=== PATIENT | male | born 1960 | race Caucasian/White ===

== ENCOUNTER → 2016-09-19 | Outpatient (REF) | payer OTHER ==
[2016-09-19 13:57] LABS: RETIC HEMOGLOBIN CONTENT CHr 34.7 PG (24-36); RETICULOCYTE ABSOLUTE ADVIA212 90 x10(9)/L (17-77)
[2016-09-19 14:24] LABS: REASON FOR REVIEW COMPREHENSIVE REVIEW
[2016-09-20 14:14] LABS: ERYTHROPOIETIN 8.6 mIU/mL (2.6-18.5); H PYLORI SERUM QUANT IgG ABY <0.9 U/mL (0.0-0.8)
== END ==
LOC: M LAB REF 10:54
PROVIDERS: ATTEND Internal Medicine Medical Oncology
DX: D75.1 Secondary polycythemia (principal)

== ENCOUNTER → 2016-10-19 | Outpatient (REF) | payer OTHER | LOC: M LAB REF 13:31 | PROVIDERS: ATTEND Internal Medicine Medical Oncology | DX: D75.1 Secondary polycythemia (principal) ==

== ENCOUNTER → 2016-12-07 | Outpatient (REF) | payer OTHER | LOC: M LAB REF 16:46 | PROVIDERS: ATTEND Internal Medicine Medical Oncology | DX: D69.6 Thrombocytopenia, unspecified (principal) ==

== ENCOUNTER → 2018-05-22 | Outpatient (REF) | payer OTHER ==
[2018-05-22 13:37] LABS: BASO # 0.1 10^3/uL (0.0-0.2); BASO % 0.9 % (0.0-1.0); EOS # 0.3 10^3/uL (0.0-0.50); EOS % 4.5 % (0.0-3.0); HEMATOCRIT 50.8 % (42.0-52.0); HEMOGLOBIN 17.4 g/dl (13.5-17.5); LYMPH # 1.6 10^3/uL (1.5-4.5); LYMPH % 23.8 % (24.0-44.0); MEAN CORPUSCULAR HEMOGLOBIN 33.1 pg (27.0-33.0); MEAN CORPUSCULAR HGB CONC 34.3 g/dl (32.0-36.5); MEAN CORPUSCULAR VOLUME 96.6 fl (80.0-96.0); MONO % 14.7 % (0.0-5.0); NEUTROPHILS # 3.8 10^3/uL (1.8-7.7); NEUTROPHILS % 55.8 % (36.0-66.0); RED BLOOD COUNT 5.26 10^6/uL (4.30-6.10); WHITE BLOOD COUNT 6.9 10^3/uL (4.0-10.0)
[2018-05-22 13:41] LABS: PLATELET COUNT, AUTOMATED 76 10^3/uL (150-450)
[2018-05-22 14:05] LABS: HEMOGLOBIN A1c 6.3 %
[2018-05-22 14:14] LABS: ERYTHROCYTE SEDIMENTATION RATE 5 mm/hr (0-20)
[2018-05-22 14:56] LABS: ALBUMIN 3.6 GM/DL (3.2-5.2); ALT/SGPT 95 U/L (12-78); BILIRUBIN,TOTAL 0.6 MG/DL (0.2-1.0); BLOOD UREA NITROGEN 11 MG/DL (7-18); CALCIUM LEVEL 8.8 MG/DL (8.5-10.1); CARBON DIOXIDE LEVEL 24 MEQ/L (21-32); CHLORIDE LEVEL 104 MEQ/L (98-107); CREATININE FOR GFR 0.75 MG/DL (0.70-1.30); FERRITIN 406 NG/ML (26-388); FOLATE 5.9 NG/ML (>5.4); GLOMERULAR FILTRATION RATE > 60.0 (>56); GLUCOSE, FASTING 103 MG/DL (70-100); IRON (FE) 161 UG/DL (65-175); PERCENT SATURATION 41.9 % (19.7-50.0); POTASSIUM SERUM 4.1 MEQ/L (3.5-5.1); RHEUMATOID FACTOR QUANT < 10.0 IU/ML (<15.0); SODIUM LEVEL 138 MEQ/L (136-145); TOTAL IRON BINDING CAPACITY 384 UG/DL (250-450); TOTAL PROTEIN 7.3 GM/DL (6.4-8.2); VITAMIN B12 LEVEL 501 PG/ML (247-911)
[2018-05-24 14:37] LABS: ALBUMIN % 54.1 % (55.8-66.1)
[2018-05-24 14:38] LABS: ALBUMIN 3.95 GM/DL (3.29-5.55); ALPHA-1-GLOBULIN % 4.8 % (2.9-4.9); ALPHA-1-GLOBULINS 0.35 GM/DL (0.17-0.41); ALPHA-2-GLOBULINS 0.85 GM/DL (0.42-0.99); ALPHA-2-GLOBULINS % 11.7 % (7.1-11.8); BETA-1-GLOBULINS 0.51 GM/DL (0.28-0.60); BETA-2-GLOBULINS 0.46 GM/DL (0.19-0.55); BETA-2-GLOBULINS % 6.3 % (3.2-6.5); GAMMA GLOBULIN % 16.1 % (11.1-18.8); GAMMA GLOBULINS 1.18 GM/DL (0.65-1.58)
== END ==
LOC: M LABDRAW1 12:12
PROVIDERS: ATTEND Psychiatry & Neurology Neurology
DX: G25.81 Restless legs syndrome (principal); E11.9 Type 2 diabetes mellitus without complications; E07.9 Disorder of thyroid, unspecified; E61.1 Iron deficiency

== ENCOUNTER 2019-11-03 14:02 | Emergency (ER) | payer OTHER ==
[2019-11-03] MEDS ORDERED: BOOSTRIX/ADACEL VACCINE (DIPHTH/PERTUSS/ACELL/TETANUS) 0.5ML SYR As Ordered ONE (14:51)
[2019-11-03] MEDS ORDERED: BOOSTRIX/ADACEL VACCINE (DIPHTH/PERTUSS/ACELL/TETANUS) 0.5ML SYR ONE (14:51)
[2019-11-03] MEDS ORDERED: LIDOCAINE 2% MDV 20ML VIAL ONE (15:10)
[2019-11-03] MEDS ORDERED: LIDOCAINE 2% MDV 20ML VIAL As Ordered ONE (15:10)
== END 2019-11-03 16:00 | disposition home or self-care (01) ==
LOC: M ED 14:02
DX: S61.012A Laceration without foreign body of left thumb without damage to nail, initial encounter (principal); S63.125A Dislocation of interphalangeal joint of left thumb, initial encounter; W10.8XXA Fall (on) (from) other stairs and steps, initial encounter; Y92.019 Unspecified place in single-family (private) house as the place of occurrence of the external cause; K21.9 Gastro-esophageal reflux disease without esophagitis; I10 Essential (primary) hypertension; F41.9 Anxiety disorder, unspecified; Z79.82 Long term (current) use of aspirin; Z79.899 Other long term (current) drug therapy

== ENCOUNTER → 2020-09-02 | Outpatient (CLI) | payer OTHER | LOC: M OUTALCOH 07:28 | PROVIDERS: ATTEND Psychiatry & Neurology Psychiatry | DX: Z13.39 Encounter for screening examination for other mental health and behavioral disorders (principal); F10.20 Alcohol dependence, uncomplicated ==

== ENCOUNTER 2020-09-17 16:00 | Outpatient (RCR) | payer OTHER | END 2020-09-23 | LOC: M OUTALCOH 16:00 | PROVIDERS: ATTEND Psychiatry & Neurology Psychiatry | DX: F10.20 Alcohol dependence, uncomplicated (principal); F17.200 Nicotine dependence, unspecified, uncomplicated ==

== ENCOUNTER 2020-10-22 10:00 | Outpatient (RCR) | payer OTHER | END 2020-10-24 | LOC: M OUTALCOH 10:00 | PROVIDERS: ATTEND Psychiatry & Neurology Psychiatry | DX: F10.20 Alcohol dependence, uncomplicated (principal); F17.200 Nicotine dependence, unspecified, uncomplicated ==

== ENCOUNTER → 2020-11-05 | Outpatient (CLI) | payer OTHER | LOC: M PLALAB 11:45 | PROVIDERS: ATTEND Psychiatry & Neurology Psychiatry | DX: F10.20 Alcohol dependence, uncomplicated (principal) ==

== ENCOUNTER 2020-11-20 16:00 | Outpatient (RCR) | payer OTHER | END 2020-11-24 | LOC: M OUTALCOH 16:00 | PROVIDERS: ATTEND Psychiatry & Neurology Psychiatry | DX: F10.20 Alcohol dependence, uncomplicated (principal); F17.200 Nicotine dependence, unspecified, uncomplicated ==

== ENCOUNTER 2020-12-23 13:59 | Outpatient (RCR) | payer OTHER | END 2020-12-24 | LOC: M OUTALCOH 13:59 | PROVIDERS: ATTEND Psychiatry & Neurology Psychiatry | DX: F10.20 Alcohol dependence, uncomplicated (principal); F17.200 Nicotine dependence, unspecified, uncomplicated ==

== ENCOUNTER → 2021-01-06 | Outpatient (CLI) | payer OTHER | LOC: M PLALAB 12:38 | PROVIDERS: ATTEND Psychiatry & Neurology Psychiatry | DX: F10.20 Alcohol dependence, uncomplicated (principal) ==

== ENCOUNTER 2021-01-20 12:00 | Outpatient (RCR) | payer OTHER | END 2021-01-24 | LOC: M OUTALCOH 12:00 | PROVIDERS: ATTEND Psychiatry & Neurology Psychiatry | DX: F10.20 Alcohol dependence, uncomplicated (principal); F17.200 Nicotine dependence, unspecified, uncomplicated ==

== ENCOUNTER → 2021-01-27 | Outpatient (CLI) | payer OTHER | LOC: M PLALAB 13:58 | PROVIDERS: ATTEND Psychiatry & Neurology Psychiatry | DX: F10.20 Alcohol dependence, uncomplicated (principal) ==

== ENCOUNTER 2021-02-22 16:00 | Outpatient (RCR) | payer OTHER | END 2021-02-23 | LOC: M OUTALCOH 16:00 | PROVIDERS: ATTEND Psychiatry & Neurology Psychiatry | DX: F10.20 Alcohol dependence, uncomplicated (principal); F17.200 Nicotine dependence, unspecified, uncomplicated ==

== ENCOUNTER 2021-03-24 16:00 | Outpatient (RCR) | payer OTHER | END 2021-03-26 | LOC: M OUTALCOH 16:00 | PROVIDERS: ATTEND Psychiatry & Neurology Psychiatry | DX: F10.20 Alcohol dependence, uncomplicated (principal); F17.200 Nicotine dependence, unspecified, uncomplicated ==

== ENCOUNTER 2021-04-21 14:57 | Outpatient (RCR) | payer OTHER | END 2021-04-26 | LOC: M OUTALCOH 14:57 | PROVIDERS: ATTEND Psychiatry & Neurology Psychiatry | DX: F10.20 Alcohol dependence, uncomplicated (principal); F17.200 Nicotine dependence, unspecified, uncomplicated ==

== ENCOUNTER 2021-04-29 13:05 | Inpatient (IN) | payer OTHER ==
[~2021-04-29] VITALS: Ht 190.5 cm; Wt 85.0 kg
[2021-04-29] MEDS: predniSONE 20 MG TAB PO SCH (09:00)
[2021-04-29] MEDS ORDERED: PRAV20TA2 PO (13:18)
[2021-04-29] MEDS ORDERED: ALPR0.5T3 PO (13:18)
[2021-04-29] MEDS ORDERED: PROP40TA62 PO (13:18)
[2021-04-29] MEDS ORDERED: MONT10TA97 PO (13:18)
[2021-04-29] MEDS ORDERED: LANS30CA93 PO (13:18)
[2021-04-29] MEDS ORDERED: NORT50CA PO (13:18)
[2021-04-29 14:03] LABS: HEMATOCRIT 37.4 % (42.0-52.0); HEMOGLOBIN 13.1 g/dl (13.5-17.5); MEAN CORPUSCULAR HEMOGLOBIN 34.2 pg (27.0-33.0); MEAN CORPUSCULAR VOLUME 97.7 fl (80.0-96.0); RED BLOOD COUNT 3.83 10^6/uL (4.30-6.10); WHITE BLOOD COUNT 11.8 10^3/uL (4.0-10.0)
[2021-04-29 14:11] LABS: INR 1.68; PROTHROMBIN TIME 20.2 SECONDS (12.7-14.5)
[2021-04-29 14:24] LABS: PLATELET COUNT, AUTOMATED 53 10^3/uL (150-450)
[2021-04-29 14:28] LABS: ATYPICAL LYMPH 3 % (0-5); LYMPHOCYTES 22 % (16-44); MONOCYTES 5 % (0-5); NEUTROPHILS 70 % (28-66)
[2021-04-29 14:29] LABS: OVALOCYTES 1+
[2021-04-29 14:30] LABS: PLATELET ESTIMATE DECREASED (NORMAL)
[2021-04-29 14:39] LABS: ALBUMIN 2.6 GM/DL (3.2-5.2); ALT/SGPT 41 U/L (12-78); BILIRUBIN,DIRECT 4.2 MG/DL (0.0-0.2); BILIRUBIN,TOTAL 8.5 MG/DL (0.2-1.0); BLOOD UREA NITROGEN 12 MG/DL (7-18); CALCIUM LEVEL 8.7 MG/DL (8.5-10.1); CARBON DIOXIDE LEVEL 26 MEQ/L (21-32); CHLORIDE LEVEL 103 MEQ/L (98-107); CREATININE FOR GFR 0.96 MG/DL (0.70-1.30); ETHYL ALCOHOL (ETHANOL) < 0.003 % (0.000-0.010); GLOMERULAR FILTRATION RATE > 60.0 (>56); GLUCOSE, FASTING 101 MG/DL (70-100); POTASSIUM SERUM 3.1 MEQ/L (3.5-5.1); SODIUM LEVEL 134 MEQ/L (136-145); TOTAL PROTEIN 7.2 GM/DL (6.4-8.2)
[2021-04-29 15:00] LABS: RSV AMPLIFICATION NEGATIVE (NEGATIVE)
[2021-04-29] MEDS ORDERED: ACETAMINOPHEN TAB 650MG DOSE (2X325MG) PO PRN (15:30)
[2021-04-29] MEDS: METOPROLOL 5 MG/5 ML VIAL IV SCH ×3 (15:55→16:30)
[2021-04-29] MEDS ORDERED: METOPROLOL TART 25 MG TABLET PO ONE ×2 (16:05→19:55)
[2021-04-29] MEDS ORDERED: ASPI81TA26 PO (17:37)
[2021-04-29] MEDS ORDERED: HOME MED LIST COMPLETE! XX SCH (17:40)
[2021-04-29 18:53] LABS: FERRITIN 836 NG/ML (26-388); IRON (FE) 159 UG/DL (65-175); PERCENT SATURATION 88.3 % (19.7-50.0); TOTAL IRON BINDING CAPACITY 180 UG/DL (250-450)
[2021-04-29] MEDS ORDERED: REMDESIVIR 200 MG in NS 250 ML IV ONE (20:00)
[2021-04-29] MEDS: ENOXAPARIN 100MG/1ML SYRINGE (J1650 PER 10MG) SC SCH (20:48)
[2021-04-29 21:20] VITALS: BP 108/71
[2021-04-29] MEDS ORDERED: SODIUM CHLORIDE 0.9% INJ 10 ML SYR IV ONE (22:00)
[2021-04-29 23:31] VITALS: BP 96/63
[2021-04-30] MEDS ORDERED: DIGOXIN INJ 0.5 MG/2 ML AMP (J1160) IV ONE (02:55)
[2021-04-30] MEDS ORDERED: METOPROLOL 5 MG/5 ML VIAL IV STA (03:55)
[2021-04-30 04:00] VITALS: BP 107/79
[2021-04-30 07:54] LABS: MEAN CORPUSCULAR HEMOGLOBIN 35.3 pg (27.0-33.0); MEAN CORPUSCULAR HGB CONC 36.3 g/dl (32.0-36.5); MEAN CORPUSCULAR VOLUME 97.3 fl (80.0-96.0); RED BLOOD COUNT 4.42 10^6/uL (4.30-6.10); WHITE BLOOD COUNT 9.4 10^3/uL (4.0-10.0)
[2021-04-30 07:56] LABS: PLATELET COUNT, AUTOMATED 61 10^3/uL (150-450)
[2021-04-30 07:57] LABS: HEMOGLOBIN 15.6 g/dl (13.5-17.5)
[2021-04-30 08:14] LABS: ALBUMIN 2.6 GM/DL (3.2-5.2); ALT/SGPT 40 U/L (12-78); BILIRUBIN,TOTAL 8.9 MG/DL (0.2-1.0); BLOOD UREA NITROGEN 9 MG/DL (7-18); CALCIUM LEVEL 8.6 MG/DL (8.5-10.1); CARBON DIOXIDE LEVEL 25 MEQ/L (21-32); CHLORIDE LEVEL 102 MEQ/L (98-107); CREATININE FOR GFR 0.74 MG/DL (0.70-1.30); GLOMERULAR FILTRATION RATE > 60.0 (>56); GLUCOSE, FASTING 95 MG/DL (70-100); POTASSIUM SERUM 3.3 MEQ/L (3.5-5.1); SODIUM LEVEL 136 MEQ/L (136-145); TOTAL PROTEIN 7.6 GM/DL (6.4-8.2)
[2021-04-30 08:30] VITALS: BP 107/80
[2021-04-30] MEDS: predniSONE 20 MG TAB PO SCH (08:34)
[2021-04-30] MEDS: ENOXAPARIN 100MG/1ML SYRINGE (J1650 PER 10MG) SC SCH ×2 (08:36→21:00)
[2021-04-30] MEDS ORDERED: METOPROLOL TART 25 MG TABLET PO SCH (09:00)
[2021-04-30] MEDS ORDERED: POTASSIUM CHLORIDE 10MEQ SR TABLET PO ONE (09:30)
[2021-04-30] MEDS ORDERED: ALPRAZolam 0.5 MG TAB PO PRN (10:15)
[2021-04-30] MEDS ORDERED: METOPROLOL TART 25 MG TABLET PO ONE (10:45)
[2021-04-30] MEDS: PANTOPRAZOLE 40MG TAB (PROTONIX) PO SCH (11:12)
[2021-04-30] MEDS: ASPIRIN 81MG ENTERIC TABLET PO SCH (11:12)
[2021-04-30] MEDS: MONTELUKAST 10 MG TAB PO SCH (11:12)
[2021-04-30 11:38] LABS: HEPATITIS B SURFACE ANTIGEN NEGATIVE (NEGATIVE)
[2021-04-30 12:00] VITALS: BP 115/82
[2021-04-30 12:05] LABS: HEPATITIS C VIRUS ABY INDEX < 0.0 INDEX (<0.8)
[2021-04-30 17:16] VITALS: BP 134/101
[2021-04-30 20:00] VITALS: BP 138/91
[2021-04-30] MEDS: REMDESIVIR 100 MG in NS 250 ML IV SCH (20:00)
[2021-04-30] MEDS: SODIUM CHLORIDE 0.9% INJ 10 ML SYR IV SCH (21:00)
[2021-04-30] MEDS: PRAVASTATIN 20 MG TAB PO SCH (21:00)
[2021-04-30] MEDS: NORTRIPTYLINE 25 MG CAP PO SCH (21:00)
[2021-04-30] MEDS: METOPROLOL TART 50 MG TAB PO SCH (21:00)
[2021-04-30 22:03] LABS: MAGNESIUM LEVEL 1.7 MG/DL (1.7-2.2)
[2021-05-01 08:40] LABS: HEMATOCRIT 37.8 % (42.0-52.0); HEMOGLOBIN 13.7 g/dl (13.5-17.5); MEAN CORPUSCULAR HEMOGLOBIN 35.3 pg (27.0-33.0); MEAN CORPUSCULAR HGB CONC 36.2 g/dl (32.0-36.5); MEAN CORPUSCULAR VOLUME 97.4 fl (80.0-96.0); RED BLOOD COUNT 3.88 10^6/uL (4.30-6.10)
[2021-05-01 08:42] LABS: PLATELET COUNT, AUTOMATED 71 10^3/uL (150-450)
[2021-05-01] MEDS: ASPIRIN 81MG ENTERIC TABLET PO SCH (08:42)
[2021-05-01] MEDS: MONTELUKAST 10 MG TAB PO SCH (08:42)
[2021-05-01] MEDS: PANTOPRAZOLE 40MG TAB (PROTONIX) PO SCH (08:42)
[2021-05-01] MEDS: predniSONE 20 MG TAB PO SCH (08:42)
[2021-05-01] MEDS: METOPROLOL TART 50 MG TAB PO SCH ×2 (08:42→20:22)
[2021-05-01] MEDS: ENOXAPARIN 100MG/1ML SYRINGE (J1650 PER 10MG) SC SCH ×2 (08:44→20:24)
[2021-05-01 08:50] LABS: INR 1.78; PROTHROMBIN TIME 21.1 SECONDS (12.7-14.5)
[2021-05-01 08:58] LABS: ALBUMIN 2.3 GM/DL (3.2-5.2); ALT/SGPT 34 U/L (12-78); BILIRUBIN,TOTAL 7.8 MG/DL (0.2-1.0); BLOOD UREA NITROGEN 10 MG/DL (7-18); CALCIUM LEVEL 8.6 MG/DL (8.5-10.1); CARBON DIOXIDE LEVEL 23 MEQ/L (21-32); CHLORIDE LEVEL 106 MEQ/L (98-107); CREATININE FOR GFR 0.61 MG/DL (0.70-1.30); GLOMERULAR FILTRATION RATE > 60.0 (>56); GLUCOSE, FASTING 96 MG/DL (70-100); POTASSIUM SERUM 3.7 MEQ/L (3.5-5.1); SODIUM LEVEL 136 MEQ/L (136-145); TOTAL PROTEIN 7.1 GM/DL (6.4-8.2)
[2021-05-01 11:18] VITALS: BP 116/76
[2021-05-01 11:44] VITALS: BP 96/69
[2021-05-01] MEDS ORDERED: DIGOXIN INJ 0.5 MG/2 ML AMP (J1160) IV ONE (13:30)
[2021-05-01 15:31] VITALS: BP 106/60
[2021-05-01 17:22] VITALS: BP 113/75
[2021-05-01] MEDS: WARFARIN SOD 2.5MG TAB PO SCH (17:26)
[2021-05-01 19:05] LABS: MAGNESIUM LEVEL 1.7 MG/DL (1.7-2.2)
[2021-05-01 19:17] VITALS: BP 109/60
[2021-05-01] MEDS: NORTRIPTYLINE 25 MG CAP PO SCH (20:22)
[2021-05-01] MEDS: PRAVASTATIN 20 MG TAB PO SCH (20:23)
[2021-05-01] MEDS: REMDESIVIR 100 MG in NS 250 ML IV SCH (20:28)
[2021-05-01] MEDS: SODIUM CHLORIDE 0.9% INJ 10 ML SYR IV SCH (20:32)
[2021-05-01 23:25] VITALS: BP 114/74
[2021-05-02 03:34] VITALS: BP 100/50
[2021-05-02 07:22] VITALS: BP 116/78
[2021-05-02 07:22] LABS: MEAN CORPUSCULAR HEMOGLOBIN 35.2 pg (27.0-33.0); MEAN CORPUSCULAR HGB CONC 35.3 g/dl (32.0-36.5); MEAN CORPUSCULAR VOLUME 99.7 fl (80.0-96.0); RED BLOOD COUNT 3.41 10^6/uL (4.30-6.10); WHITE BLOOD COUNT 11.7 10^3/uL (4.0-10.0)
[2021-05-02 07:25] LABS: PLATELET COUNT, AUTOMATED 72 10^3/uL (150-450)
[2021-05-02 07:35] LABS: INR 1.93; PROTHROMBIN TIME 22.5 SECONDS (12.7-14.5)
[2021-05-02 07:50] LABS: ALBUMIN 2.1 GM/DL (3.2-5.2); ALT/SGPT 35 U/L (12-78); BILIRUBIN,TOTAL 5.5 MG/DL (0.2-1.0); BLOOD UREA NITROGEN 9 MG/DL (7-18); CARBON DIOXIDE LEVEL 25 MEQ/L (21-32); CHLORIDE LEVEL 105 MEQ/L (98-107); CREATININE FOR GFR 0.68 MG/DL (0.70-1.30); GLOMERULAR FILTRATION RATE > 60.0 (>56); GLUCOSE, FASTING 88 MG/DL (70-100); POTASSIUM SERUM 3.3 MEQ/L (3.5-5.1); SODIUM LEVEL 136 MEQ/L (136-145); TOTAL PROTEIN 6.3 GM/DL (6.4-8.2)
[2021-05-02] MEDS: PANTOPRAZOLE 40MG TAB (PROTONIX) PO SCH (08:17)
[2021-05-02] MEDS: ENOXAPARIN 100MG/1ML SYRINGE (J1650 PER 10MG) SC SCH ×2 (08:17→20:39)
[2021-05-02] MEDS: DIGOXIN 0.125 MG TAB PO SCH (08:17)
[2021-05-02] MEDS: predniSONE 20 MG TAB PO SCH (08:17)
[2021-05-02] MEDS: MONTELUKAST 10 MG TAB PO SCH (08:18)
[2021-05-02] MEDS: ASPIRIN 81MG ENTERIC TABLET PO SCH (08:18)
[2021-05-02] MEDS: METOPROLOL TART 50 MG TAB PO SCH ×2 (08:18→20:38)
[2021-05-02] MEDS: LACTULOSE 20 GM/30 ML SYRUP UD PO SCH ×3 (09:51→21:02)
[2021-05-02 12:31] VITALS: BP 103/64
[2021-05-02] MEDS: WARFARIN SOD 2.5MG TAB PO SCH (16:05)
[2021-05-02 16:07] VITALS: BP 111/68
[2021-05-02 16:08] LABS: MAGNESIUM LEVEL 1.6 MG/DL (1.7-2.2)
[2021-05-02 20:00] VITALS: BP 105/75
[2021-05-02] MEDS: NORTRIPTYLINE 25 MG CAP PO SCH (20:38)
[2021-05-02] MEDS: PRAVASTATIN 20 MG TAB PO SCH (20:38)
[2021-05-03] VITALS: BP 108/66
[2021-05-03 04:00] VITALS: BP 116/75
[2021-05-03] MEDS: LACTULOSE 20 GM/30 ML SYRUP UD PO SCH ×3 (06:00→20:30)
[2021-05-03 08:00] VITALS: BP 104/71
[2021-05-03] MEDS: SPIRONOLACTONE 50 MG TAB PO SCH (08:54)
[2021-05-03] MEDS: MONTELUKAST 10 MG TAB PO SCH (08:54)
[2021-05-03] MEDS: ENOXAPARIN 100MG/1ML SYRINGE (J1650 PER 10MG) SC SCH ×2 (08:54→20:27)
[2021-05-03] MEDS: predniSONE 20 MG TAB PO SCH (08:54)
[2021-05-03] MEDS: PANTOPRAZOLE 40MG TAB (PROTONIX) PO SCH (08:54)
[2021-05-03] MEDS: FUROSEMIDE 20 MG TAB PO SCH (08:55)
[2021-05-03] MEDS: DIGOXIN 0.125 MG TAB PO SCH (08:55)
[2021-05-03] MEDS: ASPIRIN 81MG ENTERIC TABLET PO SCH (08:55)
[2021-05-03] MEDS: METOPROLOL TART 50 MG TAB PO SCH ×2 (08:55→20:28)
[2021-05-03 09:23] LABS: HEMATOCRIT 37.4 % (42.0-52.0); HEMOGLOBIN 13.4 g/dl (13.5-17.5); MEAN CORPUSCULAR HEMOGLOBIN 35.4 pg (27.0-33.0); MEAN CORPUSCULAR HGB CONC 35.8 g/dl (32.0-36.5); MEAN CORPUSCULAR VOLUME 98.9 fl (80.0-96.0); PLATELET COUNT, AUTOMATED 87 10^3/uL (150-450); RED BLOOD COUNT 3.78 10^6/uL (4.30-6.10); WHITE BLOOD COUNT 9.8 10^3/uL (4.0-10.0)
[2021-05-03 09:29] LABS: INR 2.12; PROTHROMBIN TIME 24.1 SECONDS (12.7-14.5)
[2021-05-03 09:45] LABS: ALBUMIN 2.3 GM/DL (3.2-5.2); ALT/SGPT 50 U/L (12-78); BILIRUBIN,TOTAL 6.1 MG/DL (0.2-1.0); BLOOD UREA NITROGEN 6 MG/DL (7-18); CALCIUM LEVEL 8.5 MG/DL (8.5-10.1); CARBON DIOXIDE LEVEL 25 MEQ/L (21-32); CHLORIDE LEVEL 106 MEQ/L (98-107); CREATININE FOR GFR 0.62 MG/DL (0.70-1.30); GLOMERULAR FILTRATION RATE > 60.0 (>56); GLUCOSE, FASTING 78 MG/DL (70-100); POTASSIUM SERUM 3.3 MEQ/L (3.5-5.1); SODIUM LEVEL 140 MEQ/L (136-145); TOTAL PROTEIN 7.1 GM/DL (6.4-8.2)
[2021-05-03 12:00] VITALS: BP 101/61
[2021-05-03] MEDS ORDERED: ISOVUE-370 76% 100ML VIAL As Ordered ONE (15:59)
[2021-05-03 16:00] VITALS: BP 111/71
[2021-05-03] MEDS: WARFARIN SOD 2.5MG TAB PO SCH (17:12)
[2021-05-03 19:35] LABS: MAGNESIUM LEVEL 1.7 MG/DL (1.7-2.2)
[2021-05-03 20:00] VITALS: BP 119/59
[2021-05-03] MEDS: NORTRIPTYLINE 25 MG CAP PO SCH (20:27)
[2021-05-03] MEDS: PRAVASTATIN 20 MG TAB PO SCH (20:28)
[2021-05-04] VITALS (7 sets, daily range): BP systolic 92–145; BP diastolic 55–85
[2021-05-04] MEDS: LACTULOSE 20 GM/30 ML SYRUP UD PO SCH ×2 (04:29→22:20)
[2021-05-04] MEDS: SPIRONOLACTONE 50 MG TAB PO SCH (09:00)
[2021-05-04] MEDS: METOPROLOL TART 50 MG TAB PO SCH ×2 (09:00→22:20)
[2021-05-04] MEDS: FUROSEMIDE 20 MG TAB PO SCH (09:00)
[2021-05-04] MEDS: DIGOXIN 0.125 MG TAB PO SCH (09:34)
[2021-05-04] MEDS: predniSONE 20 MG TAB PO SCH (09:35)
[2021-05-04] MEDS: PANTOPRAZOLE 40MG TAB (PROTONIX) PO SCH (09:35)
[2021-05-04] MEDS: ASPIRIN 81MG ENTERIC TABLET PO SCH (09:35)
[2021-05-04] MEDS: MONTELUKAST 10 MG TAB PO SCH (09:35)
[2021-05-04] MEDS: ENOXAPARIN 100MG/1ML SYRINGE (J1650 PER 10MG) SC SCH (09:37)
[2021-05-04 10:07] LABS: HEMATOCRIT 38.2 % (42.0-52.0); HEMOGLOBIN 13.4 g/dl (13.5-17.5); MEAN CORPUSCULAR HEMOGLOBIN 35.8 pg (27.0-33.0); MEAN CORPUSCULAR HGB CONC 35.1 g/dl (32.0-36.5); MEAN CORPUSCULAR VOLUME 102.1 fl (80.0-96.0); PLATELET COUNT, AUTOMATED 108 10^3/uL (150-450); RED BLOOD COUNT 3.74 10^6/uL (4.30-6.10); WHITE BLOOD COUNT 10.7 10^3/uL (4.0-10.0)
[2021-05-04 10:10] LABS: PROTHROMBIN TIME 23.1 SECONDS (12.7-14.5)
[2021-05-04] MEDS ORDERED: DIGOXIN INJ 0.5 MG/2 ML AMP (J1160) IV ONE (11:00)
[2021-05-04 11:02] LABS: ALBUMIN 2.5 GM/DL (3.2-5.2); ALT/SGPT 67 U/L (12-78); BILIRUBIN,TOTAL 4.6 MG/DL (0.2-1.0); BLOOD UREA NITROGEN 6 MG/DL (7-18); CALCIUM LEVEL 8.8 MG/DL (8.5-10.1); CARBON DIOXIDE LEVEL 28 MEQ/L (21-32); CHLORIDE LEVEL 101 MEQ/L (98-107); CREATININE FOR GFR 0.68 MG/DL (0.70-1.30); GLOMERULAR FILTRATION RATE > 60.0 (>56); GLUCOSE, FASTING 123 MG/DL (70-100); SODIUM LEVEL 136 MEQ/L (136-145); TOTAL PROTEIN 7.4 GM/DL (6.4-8.2)
[2021-05-04 16:09] LABS: ANCA-ATYPICAL <1:20 titer (Neg:<1:20); ANTI-MITOCHONDRIAL ANTIBODY <20.0 Units (0.0-20.0); ANTI-SMOOTH MUSCLE ANTIBODY 19 Units (0-19); ANTINUCLEAR ANTIBODIES DIRECT Negative (Negative); CYTOPLASMIC NEUTROP AB ANCA-C <1:20 titer (Neg:<1:20); LIVER-KIDNEY MICROSOMAL ABY <20.1 Units (0.0-20.0); PERINUCLEAR AB ANCA-P <1:20 titer (Neg:<1:20); TRANSFERRIN 162 mg/dL (177-329)
[2021-05-04 17:45] LABS: MAGNESIUM LEVEL 1.7 MG/DL (1.7-2.2)
[2021-05-04] MEDS ORDERED: POTASSIUM CHLORIDE 10% LIQ 20 MEQ/15 ML UDC PO ONE (21:00)
[2021-05-04] MEDS: NORTRIPTYLINE 25 MG CAP PO SCH (22:19)
[2021-05-04] MEDS: PRAVASTATIN 20 MG TAB PO SCH (22:21)
[2021-05-04] MEDS: NS 1,000 ML IV SCH (22:22)
[2021-05-05] VITALS: BP 114/64
[2021-05-05] MEDS: NS 1,000 ML IV SCH (04:12)
[2021-05-05 06:39] LABS: HEMATOCRIT 31.8 % (42.0-52.0); MEAN CORPUSCULAR HEMOGLOBIN 35.2 pg (27.0-33.0); MEAN CORPUSCULAR HGB CONC 35.5 g/dl (32.0-36.5); MEAN CORPUSCULAR VOLUME 99.1 fl (80.0-96.0); RED BLOOD COUNT 3.21 10^6/uL (4.30-6.10); WHITE BLOOD COUNT 11.7 10^3/uL (4.0-10.0)
[2021-05-05 06:40] LABS: HEMOGLOBIN 11.3 g/dl (13.5-17.5); PLATELET COUNT, AUTOMATED 97 10^3/uL (150-450)
[2021-05-05 06:48] LABS: INR 2.26; PROTHROMBIN TIME 25.3 SECONDS (12.7-14.5)
[2021-05-05 07:10] LABS: ALBUMIN 2.1 GM/DL (3.2-5.2); ALT/SGPT 58 U/L (12-78); BILIRUBIN,TOTAL 3.6 MG/DL (0.2-1.0); BLOOD UREA NITROGEN 5 MG/DL (7-18); CALCIUM LEVEL 8.2 MG/DL (8.5-10.1); CARBON DIOXIDE LEVEL 26 MEQ/L (21-32); CHLORIDE LEVEL 107 MEQ/L (98-107); CREATININE FOR GFR 0.51 MG/DL (0.70-1.30); GLOMERULAR FILTRATION RATE > 60.0 (>56); GLUCOSE, FASTING 67 MG/DL (70-100); POTASSIUM SERUM 3.4 MEQ/L (3.5-5.1); SODIUM LEVEL 138 MEQ/L (136-145)
[2021-05-05] MEDS: LACTULOSE 20 GM/30 ML SYRUP UD PO SCH ×2 (08:14→20:56)
[2021-05-05] MEDS: FUROSEMIDE 20 MG TAB PO SCH (08:15)
[2021-05-05] MEDS: SPIRONOLACTONE 50 MG TAB PO SCH (08:15)
[2021-05-05] MEDS: predniSONE 20 MG TAB PO SCH (08:15)
[2021-05-05] MEDS: PANTOPRAZOLE 40MG TAB (PROTONIX) PO SCH (08:15)
[2021-05-05] MEDS: MONTELUKAST 10 MG TAB PO SCH (08:15)
[2021-05-05] MEDS: ASPIRIN 81MG ENTERIC TABLET PO SCH (08:15)
[2021-05-05] MEDS: METOPROLOL TART 50 MG TAB PO SCH ×2 (08:15→21:00)
[2021-05-05] MEDS: DIGOXIN 0.125 MG TAB PO SCH (08:16)
[2021-05-05 08:18] VITALS: BP 120/55
[2021-05-05 12:00] VITALS: BP 102/61
[2021-05-05 16:00] VITALS: BP 112/64
[2021-05-05] MEDS: WARFARIN SOD 3MG TAB PO SCH (16:45)
[2021-05-05 17:19] LABS: MAGNESIUM LEVEL 1.6 MG/DL (1.7-2.2)
[2021-05-05 20:00] VITALS: BP 91/54
[2021-05-05] MEDS: NORTRIPTYLINE 25 MG CAP PO SCH (20:56)
[2021-05-05] MEDS: PRAVASTATIN 20 MG TAB PO SCH (20:56)
[2021-05-06] VITALS (7 sets, daily range): BP systolic 90–113; BP diastolic 48–72
[2021-05-06 06:37] LABS: HEMOGLOBIN 11.6 g/dl (13.5-17.5); MEAN CORPUSCULAR HEMOGLOBIN 35.4 pg (27.0-33.0); MEAN CORPUSCULAR HGB CONC 35.2 g/dl (32.0-36.5); MEAN CORPUSCULAR VOLUME 100.6 fl (80.0-96.0); RED BLOOD COUNT 3.28 10^6/uL (4.30-6.10); WHITE BLOOD COUNT 11.4 10^3/uL (4.0-10.0)
[2021-05-06 06:42] LABS: PLATELET COUNT, AUTOMATED 94 10^3/uL (150-450)
[2021-05-06 06:49] LABS: INR 2.16; PROTHROMBIN TIME 24.5 SECONDS (12.7-14.5)
[2021-05-06 07:18] LABS: ALBUMIN 2.2 GM/DL (3.2-5.2); ALT/SGPT 66 U/L (12-78); BILIRUBIN,TOTAL 3.8 MG/DL (0.2-1.0); BLOOD UREA NITROGEN 5 MG/DL (7-18); CALCIUM LEVEL 8.2 MG/DL (8.5-10.1); CARBON DIOXIDE LEVEL 25 MEQ/L (21-32); CHLORIDE LEVEL 107 MEQ/L (98-107); CREATININE FOR GFR 0.58 MG/DL (0.70-1.30); GLOMERULAR FILTRATION RATE > 60.0 (>56); GLUCOSE, FASTING 132 MG/DL (70-100); POTASSIUM SERUM 3.6 MEQ/L (3.5-5.1); SODIUM LEVEL 140 MEQ/L (136-145); TOTAL PROTEIN 6.4 GM/DL (6.4-8.2)
[2021-05-06] MEDS: PANTOPRAZOLE 40MG TAB (PROTONIX) PO SCH (08:51)
[2021-05-06] MEDS: MONTELUKAST 10 MG TAB PO SCH (08:52)
[2021-05-06] MEDS: DIGOXIN 0.125 MG TAB PO SCH (08:52)
[2021-05-06] MEDS: ASPIRIN 81MG ENTERIC TABLET PO SCH (08:52)
[2021-05-06] MEDS: predniSONE 20 MG TAB PO SCH (08:53)
[2021-05-06] MEDS: LACTULOSE 20 GM/30 ML SYRUP UD PO SCH ×2 (08:53→20:28)
[2021-05-06] MEDS: SPIRONOLACTONE 50 MG TAB PO SCH (08:53)
[2021-05-06] MEDS: FUROSEMIDE 20 MG TAB PO SCH (08:53)
[2021-05-06] MEDS: METOPROLOL TART 50 MG TAB PO SCH ×2 (08:54→20:28)
[2021-05-06] MEDS: WARFARIN SOD 3MG TAB PO SCH (16:05)
[2021-05-06] MEDS ORDERED: DIGOXIN 0.125 MG TAB PO ONE (16:45)
[2021-05-06 17:36] LABS: MAGNESIUM LEVEL 1.7 MG/DL (1.7-2.2)
[2021-05-06] MEDS: NORTRIPTYLINE 25 MG CAP PO SCH (20:29)
[2021-05-06] MEDS: PRAVASTATIN 20 MG TAB PO SCH (20:29)
[2021-05-07] VITALS (7 sets, daily range): BP systolic 93–119; BP diastolic 55–63
[2021-05-07 06:30] LABS: HEMATOCRIT 36.6 % (42.0-52.0); HEMOGLOBIN 12.9 g/dl (13.5-17.5); MEAN CORPUSCULAR HEMOGLOBIN 35.7 pg (27.0-33.0); MEAN CORPUSCULAR HGB CONC 35.2 g/dl (32.0-36.5); MEAN CORPUSCULAR VOLUME 101.4 fl (80.0-96.0); PLATELET COUNT, AUTOMATED 100 10^3/uL (150-450); RED BLOOD COUNT 3.61 10^6/uL (4.30-6.10); WHITE BLOOD COUNT 14.3 10^3/uL (4.0-10.0)
[2021-05-07 06:40] LABS: INR 1.98; PROTHROMBIN TIME 22.9 SECONDS (12.7-14.5)
[2021-05-07 06:56] LABS: ALBUMIN 2.4 GM/DL (3.2-5.2); ALT/SGPT 76 U/L (12-78); BILIRUBIN,TOTAL 4.1 MG/DL (0.2-1.0); BLOOD UREA NITROGEN 6 MG/DL (7-18); CALCIUM LEVEL 8.5 MG/DL (8.5-10.1); CARBON DIOXIDE LEVEL 29 MEQ/L (21-32); CHLORIDE LEVEL 104 MEQ/L (98-107); CREATININE FOR GFR 0.71 MG/DL (0.70-1.30); GLOMERULAR FILTRATION RATE > 60.0 (>56); GLUCOSE, FASTING 89 MG/DL (70-100); POTASSIUM SERUM 3.7 MEQ/L (3.5-5.1); SODIUM LEVEL 139 MEQ/L (136-145); TOTAL PROTEIN 7.5 GM/DL (6.4-8.2)
[2021-05-07] MEDS: ASPIRIN 81MG ENTERIC TABLET PO SCH (08:21)
[2021-05-07] MEDS: SPIRONOLACTONE 50 MG TAB PO SCH (08:21)
[2021-05-07] MEDS: LACTULOSE 20 GM/30 ML SYRUP UD PO SCH ×2 (08:21→20:34)
[2021-05-07] MEDS: FUROSEMIDE 20 MG TAB PO SCH (08:22)
[2021-05-07] MEDS: DIGOXIN 0.25 MG TAB PO SCH (08:22)
[2021-05-07] MEDS: PANTOPRAZOLE 40MG TAB (PROTONIX) PO SCH (08:22)
[2021-05-07] MEDS: MONTELUKAST 10 MG TAB PO SCH (08:22)
[2021-05-07] MEDS: METOPROLOL TART 50 MG TAB PO SCH ×2 (08:23→20:43)
[2021-05-07] MEDS: predniSONE 20 MG TAB PO SCH (08:23)
[2021-05-07 15:03] LABS: MAGNESIUM LEVEL 2.1 MG/DL (1.8-2.4)
[2021-05-07] MEDS: WARFARIN SOD 3MG TAB PO SCH (18:05)
[2021-05-07] MEDS: NORTRIPTYLINE 25 MG CAP PO SCH (20:34)
[2021-05-07] MEDS: PRAVASTATIN 20 MG TAB PO SCH (20:35)
[2021-05-07] MEDS ORDERED: RAMELTEON 8 MG TAB (ROZEREM) PO SCH (21:00)
[2021-05-08 04:03] VITALS: BP 112/71
[2021-05-08 08:00] VITALS: BP 95/54
[2021-05-08] MEDS: ASPIRIN 81MG ENTERIC TABLET PO SCH (08:06)
[2021-05-08] MEDS: predniSONE 20 MG TAB PO SCH (08:07)
[2021-05-08] MEDS: PANTOPRAZOLE 40MG TAB (PROTONIX) PO SCH (08:07)
[2021-05-08] MEDS: FUROSEMIDE 20 MG TAB PO SCH (08:07)
[2021-05-08] MEDS: DIGOXIN 0.25 MG TAB PO SCH (08:07)
[2021-05-08 08:08] VITALS: BP 119/70
[2021-05-08] MEDS: LACTULOSE 20 GM/30 ML SYRUP UD PO SCH (08:08)
[2021-05-08] MEDS: MONTELUKAST 10 MG TAB PO SCH (08:08)
[2021-05-08] MEDS: SPIRONOLACTONE 50 MG TAB PO SCH (08:08)
[2021-05-08] MEDS: METOPROLOL TART 50 MG TAB PO SCH (08:08)
[2021-05-08 09:24] LABS: HEMATOCRIT 37.3 % (42.0-52.0); HEMOGLOBIN 13.2 g/dl (13.5-17.5); MEAN CORPUSCULAR HEMOGLOBIN 35.9 pg (27.0-33.0); MEAN CORPUSCULAR HGB CONC 35.4 g/dl (32.0-36.5); MEAN CORPUSCULAR VOLUME 101.4 fl (80.0-96.0); RED BLOOD COUNT 3.68 10^6/uL (4.30-6.10); WHITE BLOOD COUNT 11.6 10^3/uL (4.0-10.0)
[2021-05-08 09:30] LABS: PLATELET COUNT, AUTOMATED 97 10^3/uL (150-450)
[2021-05-08 09:34] LABS: INR 2.08; PROTHROMBIN TIME 23.8 SECONDS (12.7-14.5)
[2021-05-08 09:50] LABS: ALBUMIN 2.5 GM/DL (3.2-5.2); ALT/SGPT 72 U/L (12-78); BLOOD UREA NITROGEN 8 MG/DL (7-18); CALCIUM LEVEL 8.5 MG/DL (8.5-10.1); CARBON DIOXIDE LEVEL 28 MEQ/L (21-32); CHLORIDE LEVEL 105 MEQ/L (98-107); GLOMERULAR FILTRATION RATE > 60.0 (>56); GLUCOSE, FASTING 93 MG/DL (70-100); MAGNESIUM LEVEL 2.1 MG/DL (1.8-2.4); POTASSIUM SERUM 3.6 MEQ/L (3.5-5.1); SODIUM LEVEL 140 MEQ/L (136-145); TOTAL PROTEIN 7.4 GM/DL (6.4-8.2)
[2021-05-08 12:00] VITALS: BP 104/65
[2021-05-08 16:00] VITALS: BP 111/73
[2021-05-08] MEDS ORDERED: JANT3TAB PO (16:49)
[2021-05-08] MEDS ORDERED: FURO20TA2 PO (16:49)
[2021-05-08] MEDS ORDERED: PRED10TA2 PO (16:49)
[2021-05-08] MEDS ORDERED: LOPR1TAB6 PO (16:49)
[2021-05-08] MEDS ORDERED: PRED20TA PO (16:49)
[2021-05-08] MEDS ORDERED: ALDA50TA2 PO (16:49)
[2021-05-08] MEDS ORDERED: DIGO0.123 PO (16:54)
== END 2021-05-08 17:20 | disposition home or self-care (01) | DRG 178 ==
LOC: M ED 13:05 → M ED INP 15:29 → ENRESERV 20:45 → M 4MAIN 21:10
PROVIDERS: ADMIT Family Medicine; ATTEND Family Medicine
PROC: XW033E5 Introduction of Remdesivir Anti-infective into Peripheral Vein, Percutaneous Approach, New Technology Group 5 (ICD-10-PCS; principal; 2021-04-29)
DX: U07.1 COVID-19 (principal); I48.92 Unspecified atrial flutter; E80.6 Other disorders of bilirubin metabolism; F10.11 Alcohol abuse, in remission; I10 Essential (primary) hypertension; K70.31 Alcoholic cirrhosis of liver with ascites; Z90.49 Acquired absence of other specified parts of digestive tract; F17.210 Nicotine dependence, cigarettes, uncomplicated; K70.10 Alcoholic hepatitis without ascites; Z79.82 Long term (current) use of aspirin; Z79.899 Other long term (current) drug therapy; K70.40 Alcoholic hepatic failure without coma; E87.6 Hypokalemia; Z72.3 Lack of physical exercise; R31.9 Hematuria, unspecified

== ENCOUNTER 2021-05-12 16:00 | Outpatient (RCR) | payer OTHER ==
[~2021-05-12 16:00] MED LIST: ALDA50TA2 PO; ALPR0.5T3 PO; ASPI81TA26 PO; DIGO0.123 PO; FURO20TA2 PO; JANT3TAB PO; LANS30CA93 PO; LOPR1TAB6 PO; MONT10TA97 PO; NORT50CA PO; PRAV20TA2 PO; PRED10TA2 PO; PRED20TA PO; PROP40TA62 PO
[2021-05-13] MEDS ORDERED: METO50TA7 PO (20:51)
[2021-05-13] MEDS ORDERED: PRED20TA PO (20:51)
[2021-05-13] MEDS ORDERED: DIGO0.123 PO (20:51)
[2021-05-13] MEDS ORDERED: SPIR50TA4 PO (20:51)
[2021-05-13] MEDS ORDERED: PRED10TA2 PO (20:51)
[2021-05-13] MEDS ORDERED: WARF-58 PO (20:51)
[2021-05-13] MEDS ORDERED: FURO20TA2 PO (20:51)
[2021-05-18] MEDS ORDERED: PRED20TA PO (13:26)
[2021-05-18] MEDS ORDERED: SPIR-10 PO (13:26)
[2021-05-18] MEDS ORDERED: DIGO0.253 PO (13:26)
[2021-05-18] MEDS ORDERED: LACT20EL PO (13:26)
[2021-05-18] MEDS ORDERED: XIFA550T PO (13:26)
[2021-05-18] MEDS ORDERED: PRED10TA2 PO (13:32)
== END 2021-05-24 ==
LOC: M OUTALCOH 16:00
PROVIDERS: ATTEND Psychiatry & Neurology Psychiatry
DX: F10.20 Alcohol dependence, uncomplicated (principal); F17.200 Nicotine dependence, unspecified, uncomplicated

== ENCOUNTER 2021-05-13 15:11 | Inpatient (IN) | payer OTHER ==
[~2021-05-13] VITALS: Ht 190.5 cm; Wt 77.9 kg
[2021-05-13] MEDS ORDERED: METOPROLOL TART 50 MG TAB PO ONE (16:55)
[2021-05-13 17:19] LABS: BASO % 0.1 % (0.0-1.0); EOS % 0.1 % (0.0-3.0); HEMOGLOBIN 14.1 g/dl (13.5-17.5); LYMPH # 1.2 10^3/uL (1.5-5.0); LYMPH % 11.6 % (24.0-44.0); MEAN CORPUSCULAR HEMOGLOBIN 35.2 pg (27.0-33.0); MEAN CORPUSCULAR HGB CONC 35.3 g/dl (32.0-36.5); MEAN CORPUSCULAR VOLUME 99.8 fl (80.0-96.0); MONO # 1.3 10^3/uL (0.0-0.8); MONO % 12.5 % (2.0-8.0); NEUTROPHILS # 7.7 10^3/uL (1.5-8.5); NEUTROPHILS % 74.9 % (36.0-66.0); PLATELET COUNT, AUTOMATED 77 10^3/uL (150-450); RED BLOOD COUNT 4.01 10^6/uL (4.30-6.10); WHITE BLOOD COUNT 10.3 10^3/uL (4.0-10.0)
[2021-05-13 17:36] LABS: INR 2.65; PROTHROMBIN TIME 28.6 SECONDS (12.7-14.5)
[2021-05-13 17:37] LABS: PARTIAL THROMBOPLASTIN TIME 45.3 SECONDS (25.9-37.0)
[2021-05-13 17:59] LABS: ALBUMIN 2.9 GM/DL (3.2-5.2); ALT/SGPT 72 U/L (12-78); BILIRUBIN,DIRECT 3.3 MG/DL (0.0-0.2); BILIRUBIN,TOTAL 8.9 MG/DL (0.2-1.0); BLOOD UREA NITROGEN 17 MG/DL (7-18); CALCIUM LEVEL 9.2 MG/DL (8.5-10.1); CARBON DIOXIDE LEVEL 25 MEQ/L (21-32); CHLORIDE LEVEL 98 MEQ/L (98-107); CREATININE FOR GFR 0.99 MG/DL (0.70-1.30); DIGOXIN LEVEL 0.6 NG/ML (0.5-2.0); GLOMERULAR FILTRATION RATE > 60.0 (>56); GLUCOSE, FASTING 171 MG/DL (70-100); LIPASE 225 U/L (73-393); POTASSIUM SERUM 4.3 MEQ/L (3.5-5.1); SODIUM LEVEL 134 MEQ/L (136-145); TOTAL PROTEIN 7.8 GM/DL (6.4-8.2)
[2021-05-13] MEDS ORDERED: LACTULOSE 20 GM/30 ML SYRUP UD PO ONE (18:15)
[2021-05-13] MEDS ORDERED: DIGOXIN 0.125 MG TAB PO ONE (18:15)
[2021-05-13] MEDS ORDERED: DIGO0.123 PO (20:51)
[2021-05-13] MEDS ORDERED: PRED20TA PO (20:51)
[2021-05-13] MEDS ORDERED: SPIR50TA4 PO (20:51)
[2021-05-13] MEDS ORDERED: FURO20TA2 PO (20:51)
[2021-05-13] MEDS ORDERED: WARF-58 PO (20:51)
[2021-05-13] MEDS ORDERED: METO50TA7 PO (20:51)
[2021-05-13] MEDS ORDERED: PRED10TA2 PO (20:51)
[2021-05-13] MEDS ORDERED: HOME MED LIST COMPLETE! XX SCH (20:55)
[2021-05-13] MEDS: NORTRIPTYLINE 25 MG CAP PO SCH (21:00)
[2021-05-13] MEDS ORDERED: PRAVASTATIN 20 MG TAB PO SCH (21:00)
[2021-05-13 21:07] LABS: RSV AMPLIFICATION NEGATIVE (NEGATIVE)
[2021-05-13] MEDS ORDERED: ALPRAZolam 0.5 MG TAB PO PRN (21:50)
[2021-05-14 00:30] VITALS: BP 125/68
[2021-05-14] MEDS ORDERED: NS 500 ML IV ONE (02:05)
[2021-05-14] MEDS: LACTULOSE 20 GM/30 ML SYRUP UD PO SCH ×5 (02:23→20:26)
[2021-05-14 04:00] VITALS: BP 99/64
[2021-05-14 05:43] LABS: HEMATOCRIT 37.6 % (42.0-52.0); HEMOGLOBIN 13.5 g/dl (13.5-17.5); MEAN CORPUSCULAR HEMOGLOBIN 36.1 pg (27.0-33.0); MEAN CORPUSCULAR HGB CONC 35.9 g/dl (32.0-36.5); MEAN CORPUSCULAR VOLUME 100.5 fl (80.0-96.0); RED BLOOD COUNT 3.74 10^6/uL (4.30-6.10)
[2021-05-14 05:44] LABS: PLATELET COUNT, AUTOMATED 54 10^3/uL (150-450)
[2021-05-14 05:56] LABS: INR 2.72; PROTHROMBIN TIME 29.2 SECONDS (12.7-14.5)
[2021-05-14 08:20] VITALS: BP 108/58
[2021-05-14] MEDS: MONTELUKAST 10 MG TAB PO SCH (08:21)
[2021-05-14] MEDS: SPIRONOLACTONE 50 MG TAB PO SCH (08:21)
[2021-05-14] MEDS: predniSONE 20 MG TAB PO SCH (08:21)
[2021-05-14] MEDS: PANTOPRAZOLE 40MG TAB (PROTONIX) PO SCH (08:21)
[2021-05-14] MEDS: METOPROLOL TART 50 MG TAB PO SCH ×2 (08:21→20:26)
[2021-05-14] MEDS ORDERED: FUROSEMIDE 20 MG TAB PO SCH (09:00)
[2021-05-14] MEDS ORDERED: DIGOXIN 0.125 MG TAB PO SCH (09:00)
[2021-05-14] MEDS ORDERED: DIGOXIN 0.125 MG TAB PO ONE (09:30)
[2021-05-14 10:45] LABS: ALBUMIN 2.5 GM/DL (3.2-5.2); ALT/SGPT 63 U/L (12-78); BILIRUBIN,TOTAL 8.3 MG/DL (0.2-1.0); BLOOD UREA NITROGEN 15 MG/DL (7-18); CALCIUM LEVEL 8.4 MG/DL (8.5-10.1); CARBON DIOXIDE LEVEL 26 MEQ/L (21-32); CHLORIDE LEVEL 103 MEQ/L (98-107); CREATININE FOR GFR 0.72 MG/DL (0.70-1.30); DIGOXIN LEVEL 0.3 NG/ML (0.5-2.0); GLOMERULAR FILTRATION RATE > 60.0 (>56); GLUCOSE, FASTING 125 MG/DL (70-100); POTASSIUM SERUM 3.9 MEQ/L (3.5-5.1); SODIUM LEVEL 137 MEQ/L (136-145); TOTAL PROTEIN 6.6 GM/DL (6.4-8.2)
[2021-05-14 12:58] VITALS: BP 110/60
[2021-05-14 15:54] VITALS: BP 152/68
[2021-05-14] MEDS ORDERED: DIGOXIN INJ 0.5 MG/2 ML AMP (J1160) IV ONE (16:00)
[2021-05-14] MEDS: THIAMINE INJection 500 MG in NS 100 ML IV SCH (18:33)
[2021-05-14] MEDS: WARFARIN SOD 3MG TAB PO SCH (18:33)
[2021-05-14 20:26] VITALS: BP 113/81
[2021-05-14] MEDS: rifAXIMin 550 MG TAB (XIFAXAN) PO SCH (20:26)
[2021-05-14] MEDS: NORTRIPTYLINE 25 MG CAP PO SCH (20:26)
[2021-05-15] VITALS (7 sets, daily range): BP systolic 96–128; BP diastolic 59–79
[2021-05-15] MEDS: THIAMINE INJection 500 MG in NS 100 ML IV SCH ×3 (02:32→18:55)
[2021-05-15 06:40] LABS: BASO # 0.1 10^3/uL (0.0-0.2); BASO % 0.5 % (0.0-1.0); EOS # 0.1 10^3/uL (0.0-0.5); EOS % 1.4 % (0.0-3.0); HEMATOCRIT 37.1 % (42.0-52.0); HEMOGLOBIN 13.2 g/dl (13.5-17.5); LYMPH # 2.6 10^3/uL (1.5-5.0); MEAN CORPUSCULAR HGB CONC 35.6 g/dl (32.0-36.5); MEAN CORPUSCULAR VOLUME 101.1 fl (80.0-96.0); MONO # 1.3 10^3/uL (0.0-0.8); NEUTROPHILS # 5.5 10^3/uL (1.5-8.5); NEUTROPHILS % 57.6 % (36.0-66.0); RED BLOOD COUNT 3.67 10^6/uL (4.30-6.10); WHITE BLOOD COUNT 9.6 10^3/uL (4.0-10.0)
[2021-05-15 06:44] LABS: PLATELET COUNT, AUTOMATED 58 10^3/uL (150-450)
[2021-05-15 06:52] LABS: INR 2.59; PROTHROMBIN TIME 28.1 SECONDS (12.7-14.5)
[2021-05-15 07:49] LABS: ALBUMIN 2.4 GM/DL (3.2-5.2); ALT/SGPT 63 U/L (12-78); BILIRUBIN,TOTAL 8.7 MG/DL (0.2-1.0); BLOOD UREA NITROGEN 12 MG/DL (7-18); CALCIUM LEVEL 8.3 MG/DL (8.5-10.1); CARBON DIOXIDE LEVEL 26 MEQ/L (21-32); CHLORIDE LEVEL 103 MEQ/L (98-107); CREATININE FOR GFR 0.72 MG/DL (0.70-1.30); DIGOXIN LEVEL 0.5 NG/ML (0.5-2.0); GLOMERULAR FILTRATION RATE > 60.0 (>56); GLUCOSE, FASTING 93 MG/DL (70-100); MAGNESIUM LEVEL 1.9 MG/DL (1.8-2.4); PHOSPHORUS LEVEL 2.4 MG/DL (2.5-4.9); POTASSIUM SERUM 3.5 MEQ/L (3.5-5.1); SODIUM LEVEL 137 MEQ/L (136-145); TOTAL PROTEIN 6.6 GM/DL (6.4-8.2)
[2021-05-15] MEDS: predniSONE 20 MG TAB PO SCH (09:48)
[2021-05-15] MEDS: PANTOPRAZOLE 40MG TAB (PROTONIX) PO SCH (09:48)
[2021-05-15] MEDS: MONTELUKAST 10 MG TAB PO SCH (09:48)
[2021-05-15] MEDS: METOPROLOL TART 50 MG TAB PO SCH ×2 (09:48→21:46)
[2021-05-15] MEDS: DIGOXIN 0.25 MG TAB PO SCH (09:49)
[2021-05-15] MEDS: rifAXIMin 550 MG TAB (XIFAXAN) PO SCH ×2 (09:49→21:46)
[2021-05-15] MEDS: SPIRONOLACTONE 50 MG TAB PO SCH (09:49)
[2021-05-15] MEDS: LACTULOSE 20 GM/30 ML SYRUP UD PO SCH ×4 (09:49→21:00)
[2021-05-15 12:23] LABS: PERCENT SATURATION 96.1 % (19.7-50.0)
[2021-05-15 12:59] LABS: TOTAL PROTEIN 6.9 GM/DL (6.4-8.2)
[2021-05-15] MEDS: WARFARIN SOD 3MG TAB PO SCH (17:04)
[2021-05-15] MEDS: NORTRIPTYLINE 25 MG CAP PO SCH (21:46)
[2021-05-16] VITALS (7 sets, daily range): BP systolic 90–121; BP diastolic 57–78
[2021-05-16 04:37] LABS: BASO % 0.4 % (0.0-1.0); EOS # 0.2 10^3/uL (0.0-0.5); EOS % 1.5 % (0.0-3.0); HEMATOCRIT 34.8 % (42.0-52.0); HEMOGLOBIN 12.3 g/dl (13.5-17.5); LYMPH # 2.4 10^3/uL (1.5-5.0); LYMPH % 22.9 % (24.0-44.0); MEAN CORPUSCULAR HEMOGLOBIN 35.5 pg (27.0-33.0); MEAN CORPUSCULAR HGB CONC 35.3 g/dl (32.0-36.5); MEAN CORPUSCULAR VOLUME 100.6 fl (80.0-96.0); MONO # 1.2 10^3/uL (0.0-0.8); MONO % 11.2 % (2.0-8.0); NEUTROPHILS # 6.6 10^3/uL (1.5-8.5); NEUTROPHILS % 63.6 % (36.0-66.0); RED BLOOD COUNT 3.46 10^6/uL (4.30-6.10); WHITE BLOOD COUNT 10.4 10^3/uL (4.0-10.0)
[2021-05-16 04:41] LABS: PLATELET COUNT, AUTOMATED 61 10^3/uL (150-450); PLATELET COUNT, AUTOMATED 62 10^3/uL (150-450)
[2021-05-16 04:44] LABS: INR 2.56; PROTHROMBIN TIME 27.9 SECONDS (12.7-14.5)
[2021-05-16 05:07] LABS: ALBUMIN 2.3 GM/DL (3.2-5.2); ALT/SGPT 57 U/L (12-78); BILIRUBIN,TOTAL 6.8 MG/DL (0.2-1.0); BLOOD UREA NITROGEN 10 MG/DL (7-18); CALCIUM LEVEL 8.2 MG/DL (8.5-10.1); CARBON DIOXIDE LEVEL 25 MEQ/L (21-32); CHLORIDE LEVEL 103 MEQ/L (98-107); CREATININE FOR GFR 0.64 MG/DL (0.70-1.30); GLOMERULAR FILTRATION RATE > 60.0 (>56); GLUCOSE, FASTING 92 MG/DL (70-100); MAGNESIUM LEVEL 1.9 MG/DL (1.8-2.4); PHOSPHORUS LEVEL 2.2 MG/DL (2.5-4.9); POTASSIUM SERUM 3.6 MEQ/L (3.5-5.1); SODIUM LEVEL 136 MEQ/L (136-145); TOTAL PROTEIN 6.4 GM/DL (6.4-8.2)
[2021-05-16] MEDS: LACTULOSE 20 GM/30 ML SYRUP UD PO SCH ×4 (09:52→21:05)
[2021-05-16] MEDS: SPIRONOLACTONE 50 MG TAB PO SCH (09:52)
[2021-05-16] MEDS: PANTOPRAZOLE 40MG TAB (PROTONIX) PO SCH (09:52)
[2021-05-16] MEDS: predniSONE 20 MG TAB PO SCH (09:52)
[2021-05-16] MEDS: MONTELUKAST 10 MG TAB PO SCH (09:52)
[2021-05-16] MEDS: THIAMINE 100 MG TAB PO SCH (09:52)
[2021-05-16] MEDS: rifAXIMin 550 MG TAB (XIFAXAN) PO SCH ×2 (09:52→21:07)
[2021-05-16] MEDS: METOPROLOL TART 50 MG TAB PO SCH ×2 (09:53→21:00)
[2021-05-16] MEDS: DIGOXIN 0.25 MG TAB PO SCH (09:53)
[2021-05-16] MEDS ORDERED: POTASSIUM PHOSPHATE INJ 30 MMOL in D5W 500 ML IV ONE (10:00)
[2021-05-16] MEDS ORDERED: KETOROLAC 30 MG/ML 1ML VIAL IV ONE (14:00)
[2021-05-16] MEDS: WARFARIN SOD 3MG TAB PO SCH (18:21)
[2021-05-16] MEDS: NORTRIPTYLINE 25 MG CAP PO SCH (21:06)
[2021-05-17] VITALS: BP 109/78
[2021-05-17 04:00] VITALS: BP 109/78
[2021-05-17 04:05] LABS: HEMATOCRIT 36.2 % (42.0-52.0); MEAN CORPUSCULAR HGB CONC 35.9 g/dl (32.0-36.5); MEAN CORPUSCULAR VOLUME 100.3 fl (80.0-96.0); RED BLOOD COUNT 3.61 10^6/uL (4.30-6.10); WHITE BLOOD COUNT 15.5 10^3/uL (4.0-10.0)
[2021-05-17 04:06] LABS: PLATELET COUNT, AUTOMATED 73 10^3/uL (150-450)
[2021-05-17 04:17] LABS: INR 2.71; PROTHROMBIN TIME 29.1 SECONDS (12.7-14.5)
[2021-05-17 04:30] LABS: BLOOD UREA NITROGEN 11 MG/DL (7-18); CALCIUM LEVEL 8.6 MG/DL (8.5-10.1); CARBON DIOXIDE LEVEL 25 MEQ/L (21-32); CHLORIDE LEVEL 104 MEQ/L (98-107); GLOMERULAR FILTRATION RATE > 60.0 (>56); GLUCOSE, FASTING 125 MG/DL (70-100); PHOSPHORUS LEVEL 3.1 MG/DL (2.5-4.9); POTASSIUM SERUM 4.3 MEQ/L (3.5-5.1); SODIUM LEVEL 137 MEQ/L (136-145)
[2021-05-17 07:41] LABS: ALBUMIN 2.4 GM/DL (3.2-5.2); ALT/SGPT 73 U/L (12-78); BILIRUBIN,DIRECT 2.8 MG/DL (0.0-0.2); BILIRUBIN,TOTAL 5.4 MG/DL (0.2-1.0); TOTAL PROTEIN 7.1 GM/DL (6.4-8.2)
[2021-05-17 08:00] VITALS: BP 100/60
[2021-05-17] MEDS: LACTULOSE 20 GM/30 ML SYRUP UD PO SCH ×4 (08:41→21:00)
[2021-05-17] MEDS: MONTELUKAST 10 MG TAB PO SCH (08:42)
[2021-05-17] MEDS: rifAXIMin 550 MG TAB (XIFAXAN) PO SCH ×2 (08:42→21:05)
[2021-05-17] MEDS: SPIRONOLACTONE 50 MG TAB PO SCH (08:42)
[2021-05-17] MEDS: PANTOPRAZOLE 40MG TAB (PROTONIX) PO SCH (08:42)
[2021-05-17] MEDS: DIGOXIN 0.25 MG TAB PO SCH (08:42)
[2021-05-17] MEDS: THIAMINE 100 MG TAB PO SCH (08:43)
[2021-05-17] MEDS: METOPROLOL TART 50 MG TAB PO SCH ×2 (08:43→21:06)
[2021-05-17] MEDS: predniSONE 20 MG TAB PO SCH (08:43)
[2021-05-17 12:00] VITALS: BP 113/74
[2021-05-17 12:01] LABS: TOTAL 25(OH) VITAMIN D 14.8 NG/ML (30.0-100.0)
[2021-05-17 12:17] LABS: FOLATE 6.5 NG/ML (>5.4)
[2021-05-17] MEDS ORDERED: KETOROLAC 30 MG/ML 1ML VIAL IV ONE (12:30)
[2021-05-17] MEDS ORDERED: cefTRIAXone SOD 1 GM in D5W MINI-BAG PLUS 50 ML IV SCH (13:00)
[2021-05-17 15:32] VITALS: BP 122/80
[2021-05-17] MEDS: WARFARIN SOD 3MG TAB PO SCH (17:11)
[2021-05-17 20:00] VITALS: BP 107/78
[2021-05-17] MEDS: NORTRIPTYLINE 25 MG CAP PO SCH (21:05)
[2021-05-18] VITALS: BP 117/62
[2021-05-18] MEDS ORDERED: KETOROLAC 30 MG/ML 1ML VIAL IV ONE (01:00)
[2021-05-18 04:00] VITALS: BP 106/62
[2021-05-18 04:43] LABS: BASO % 0.3 % (0.0-1.0); EOS # 0.2 10^3/uL (0.0-0.5); EOS % 1.7 % (0.0-3.0); HEMATOCRIT 33.3 % (42.0-52.0); HEMOGLOBIN 11.8 g/dl (13.5-17.5); LYMPH # 1.6 10^3/uL (1.5-5.0); LYMPH % 12.2 % (24.0-44.0); MEAN CORPUSCULAR HEMOGLOBIN 35.9 pg (27.0-33.0); MEAN CORPUSCULAR HGB CONC 35.4 g/dl (32.0-36.5); MEAN CORPUSCULAR VOLUME 101.2 fl (80.0-96.0); MONO # 1.4 10^3/uL (0.0-0.8); MONO % 10.9 % (2.0-8.0); NEUTROPHILS # 9.8 10^3/uL (1.5-8.5); NEUTROPHILS % 74.4 % (36.0-66.0); RED BLOOD COUNT 3.29 10^6/uL (4.30-6.10); WHITE BLOOD COUNT 13.2 10^3/uL (4.0-10.0)
[2021-05-18 04:47] LABS: PLATELET COUNT, AUTOMATED 64 10^3/uL (150-450)
[2021-05-18 04:50] LABS: INR 3.04; PROTHROMBIN TIME 31.8 SECONDS (12.7-14.5)
[2021-05-18 05:38] LABS: ALBUMIN 2.2 GM/DL (3.2-5.2); ALT/SGPT 73 U/L (12-78); BILIRUBIN,TOTAL 3.9 MG/DL (0.2-1.0); BLOOD UREA NITROGEN 10 MG/DL (7-18); CALCIUM LEVEL 8.2 MG/DL (8.5-10.1); CARBON DIOXIDE LEVEL 25 MEQ/L (21-32); CHLORIDE LEVEL 102 MEQ/L (98-107); CREATININE FOR GFR 0.73 MG/DL (0.70-1.30); GLOMERULAR FILTRATION RATE > 60.0 (>56); GLUCOSE, FASTING 205 MG/DL (70-100); MAGNESIUM LEVEL 1.9 MG/DL (1.8-2.4); PHOSPHORUS LEVEL 2.3 MG/DL (2.5-4.9); POTASSIUM SERUM 4.1 MEQ/L (3.5-5.1); SODIUM LEVEL 134 MEQ/L (136-145); TOTAL PROTEIN 6.4 GM/DL (6.4-8.2)
[2021-05-18 08:00] VITALS: BP 105/65
[2021-05-18] MEDS: LACTULOSE 20 GM/30 ML SYRUP UD PO SCH ×2 (08:44→13:17)
[2021-05-18] MEDS: predniSONE 20 MG TAB PO SCH (08:44)
[2021-05-18] MEDS: THIAMINE 100 MG TAB PO SCH (08:44)
[2021-05-18] MEDS: SPIRONOLACTONE 50 MG TAB PO SCH (08:45)
[2021-05-18] MEDS: rifAXIMin 550 MG TAB (XIFAXAN) PO SCH (08:46)
[2021-05-18] MEDS: MONTELUKAST 10 MG TAB PO SCH (08:46)
[2021-05-18] MEDS: DIGOXIN 0.25 MG TAB PO SCH (08:47)
[2021-05-18] MEDS: PANTOPRAZOLE 40MG TAB (PROTONIX) PO SCH (08:48)
[2021-05-18] MEDS: METOPROLOL TART 50 MG TAB PO SCH (08:48)
[2021-05-18] MEDS ORDERED: SODIUM PHOSPHATE INJ 20 MMOL in D5W 250 ML IV ONE (10:00)
[2021-05-18 11:13] LABS: ALBUMIN 3.12 GM/DL (3.29-5.55)
[2021-05-18 11:14] LABS: ALBUMIN % 45.2 % (55.8-66.1); ALPHA-1-GLOBULIN % 3.2 % (2.9-4.9); ALPHA-1-GLOBULINS 0.22 GM/DL (0.17-0.41); ALPHA-2-GLOBULINS % 7.3 % (7.1-11.8); BETA-1-GLOBULINS 0.29 GM/DL (0.28-0.60); BETA-1-GLOBULINS % 4.2 % (4.7-7.2); BETA-2-GLOBULINS 0.58 GM/DL (0.19-0.55); BETA-2-GLOBULINS % 8.4 % (3.2-6.5); GAMMA GLOBULIN % 31.7 % (11.1-18.8); GAMMA GLOBULINS 2.19 GM/DL (0.65-1.58)
[2021-05-18 12:00] VITALS: BP 90/53
[2021-05-18 12:36] LABS: APPEARANCE, URINE HAZY (CLEAR); BACTERIA, URINE AUTO NEGATIVE (NEGATIVE); BILIRUBIN, URINE AUTO 1+ (NEGATIVE); BLOOD, URINE BLOOD NEGATIVE (NEGATIVE); CALCIUM OXALATE CRYSTALS SMALL; COLOR, URINE YELLOW (YELLOW); GLUCOSE, URINE (UA) AUTO 3+ mg/dL (NEGATIVE); KETONE, URINE AUTO TRACE mg/dL (NEGATIVE); LEUKOCYTE ESTERASE, URINE AUTO NEGATIVE (NEGATIVE); MUCUS, URINE SMALL (NEGATIVE); NITRITE, URINE AUTO NEGATIVE (NEGATIVE); PROTEIN, URINE AUTO 1+ mg/dL (NEGATIVE); RBC, URINE AUTO 3 /HPF (0-3); SPECIFIC GRAVITY URINE AUTO 1.029 (1.002-1.035); SQUAMOUS EPITHELIAL CELL UR AU 0 /HPF (0-6); WBC, URINE AUTO 4 /HPF (0-3)
[2021-05-18 13:17] VITALS: BP 90/53
[2021-05-18] MEDS ORDERED: PRED20TA PO (13:26)
[2021-05-18] MEDS ORDERED: SPIR-10 PO (13:26)
[2021-05-18] MEDS ORDERED: XIFA550T PO (13:26)
[2021-05-18] MEDS ORDERED: DIGO0.253 PO (13:26)
[2021-05-18] MEDS ORDERED: LACT20EL PO (13:26)
[2021-05-18] MEDS ORDERED: PRED10TA2 PO (13:32)
[2021-05-18] MEDS ORDERED: METOPROLOL TART 25 MG TABLET PO SCH (14:00)
[2021-05-18 15:40] VITALS: BP 123/76
== END 2021-05-18 16:37 | disposition home health service (06) | DRG 309 ==
LOC: M ED 15:11 → M ED INP 18:57 → ENRESERV 22:44 → M PCU 05-14 04:26
PROVIDERS: ADMIT Internal Medicine; ATTEND Internal Medicine
DX: I48.92 Unspecified atrial flutter (principal); M48.54XA Collapsed vertebra, not elsewhere classified, thoracic region, initial encounter for fracture; M48.56XA Collapsed vertebra, not elsewhere classified, lumbar region, initial encounter for fracture; D69.6 Thrombocytopenia, unspecified; K70.10 Alcoholic hepatitis without ascites; K70.30 Alcoholic cirrhosis of liver without ascites; D53.9 Nutritional anemia, unspecified; J45.909 Unspecified asthma, uncomplicated; I10 Essential (primary) hypertension; Z79.899 Other long term (current) drug therapy; Z79.01 Long term (current) use of anticoagulants; F17.200 Nicotine dependence, unspecified, uncomplicated; K21.9 Gastro-esophageal reflux disease without esophagitis; F32.A Depression, unspecified; F41.9 Anxiety disorder, unspecified

== ENCOUNTER 2021-06-04 11:30 | Outpatient (RCR) | payer OTHER ==
[~2021-06-04 11:30] MED LIST changes: +DIGO0.253 PO; +LACT20EL PO; +METO50TA7 PO; +SPIR-10 PO; +SPIR50TA4 PO; +WARF-58 PO; +XIFA550T PO
[2021-06-29] MEDS ORDERED: FURO20TA2 PO (10:10)
[2021-06-29] MEDS ORDERED: SERT-141 PO (10:10)
[2021-06-29] MEDS ORDERED: PRED20TA PO (10:10)
[2021-06-29] MEDS ORDERED: TIZA1TAB12 PO (10:10)
[2021-06-29] MEDS ORDERED: LACT10SO3 PO (10:10)
== END 2021-06-24 ==
LOC: M OUTALCOH 11:30
PROVIDERS: ATTEND Psychiatry & Neurology Psychiatry
DX: F10.20 Alcohol dependence, uncomplicated (principal); F17.200 Nicotine dependence, unspecified, uncomplicated

== ENCOUNTER → 2021-06-22 | Outpatient (CLI) | payer OTHER ==
[2021-06-22 14:51] LABS: BASO # 0.1 10^3/uL (0.0-0.2); BASO % 0.7 % (0.0-1.0); EOS # 0.2 10^3/uL (0.0-0.5); EOS % 2.4 % (0.0-3.0); HEMATOCRIT 41.6 % (42.0-52.0); HEMOGLOBIN 14.3 g/dl (13.5-17.5); LYMPH # 2.6 10^3/uL (1.5-5.0); LYMPH % 29.6 % (24.0-44.0); MEAN CORPUSCULAR HEMOGLOBIN 34.9 pg (27.0-33.0); MEAN CORPUSCULAR HGB CONC 34.4 g/dl (32.0-36.5); MEAN CORPUSCULAR VOLUME 101.5 fl (80.0-96.0); MONO # 1.2 10^3/uL (0.0-0.8); MONO % 13.5 % (2.0-8.0); NEUTROPHILS # 4.7 10^3/uL (1.5-8.5); NEUTROPHILS % 53.5 % (36.0-66.0); WHITE BLOOD COUNT 8.9 10^3/uL (4.0-10.0)
[2021-06-22 14:52] LABS: PLATELET COUNT, AUTOMATED 61 10^3/uL (150-450)
[2021-06-22 15:00] LABS: INR 3.32
[2021-06-22 15:21] LABS: ALBUMIN 2.3 GM/DL (3.2-5.2); ALT/SGPT 67 U/L (12-78); BILIRUBIN,TOTAL 5.8 MG/DL (0.2-1.0); BLOOD UREA NITROGEN 7 MG/DL (7-18); CALCIUM LEVEL 8.5 MG/DL (8.5-10.1); CARBON DIOXIDE LEVEL 34 MEQ/L (21-32); CHLORIDE LEVEL 98 MEQ/L (98-107); CREATININE FOR GFR 0.78 MG/DL (0.70-1.30); FERRITIN 871 NG/ML (26-388); GLOMERULAR FILTRATION RATE > 60.0 (>56); GLUCOSE, FASTING 112 MG/DL (70-100); POTASSIUM SERUM 3.1 MEQ/L (3.5-5.1); SODIUM LEVEL 135 MEQ/L (136-145); TOTAL PROTEIN 7.1 GM/DL (6.4-8.2)
== END ==
LOC: M LAB 13:55
PROVIDERS: ATTEND Internal Medicine Gastroenterology
DX: K70.31 Alcoholic cirrhosis of liver with ascites (principal)

== ENCOUNTER → 2021-06-28 | Outpatient (CLI) | payer OTHER ==
[~2021-06-28] MED LIST changes: +LACT10SO3 PO; +SERT-141 PO; +TIZA1TAB12 PO
== END ==
LOC: M LABSMTC 11:11
PROVIDERS: ATTEND Anesthesiology
DX: Z11.52 Encounter for screening for COVID-19 (principal); Z20.822 Contact with and (suspected) exposure to COVID-19

== ENCOUNTER 2021-07-13 14:28 | Inpatient (IN) | payer OTHER ==
[~2021-07-13] VITALS: Ht 190.5 cm; Wt 78.6 kg
[2021-07-13 15:14] LABS: HEMATOCRIT 44.8 % (42.0-52.0); HEMOGLOBIN 15.1 g/dl (13.5-17.5); MEAN CORPUSCULAR HEMOGLOBIN 35.5 pg (27.0-33.0); MEAN CORPUSCULAR HGB CONC 33.7 g/dl (32.0-36.5); MEAN CORPUSCULAR VOLUME 105.4 fl (80.0-96.0); RED BLOOD COUNT 4.25 10^6/uL (4.30-6.10); WHITE BLOOD COUNT 11.2 10^3/uL (4.0-10.0)
[2021-07-13 15:16] LABS: PLATELET COUNT, AUTOMATED 66 10^3/uL (150-450)
[2021-07-13] MEDS: METOPROLOL 5 MG/5 ML VIAL IV SCH ×3 (15:40→16:00)
[2021-07-13 15:41] LABS: CK-MB VALUE MASS 1.9 NG/ML (<3.6); EOSINOPHILS 1 % (0-3); LYMPHOCYTES 10 % (16-44); MB/CK RELATIVE INDEX 1.57 (< OR =4); METAMYELOCYTES 1 % (0-0); MONOCYTES 2 % (0-5); NEUTROPHILS 59 % (28-66)
[2021-07-13 15:42] LABS: TOXIC VACUOLATION 1+
[2021-07-13 15:43] LABS: PLATELET ESTIMATE DECREASED (NORMAL)
[2021-07-13 15:54] LABS: ALBUMIN 2.5 GM/DL (3.2-5.2); ALT/SGPT 48 U/L (12-78); BILIRUBIN,DIRECT 4.1 MG/DL (0.0-0.2); BILIRUBIN,TOTAL 9.8 MG/DL (0.2-1.0); BLOOD UREA NITROGEN 10 MG/DL (7-18); CALCIUM LEVEL 9.3 MG/DL (8.8-10.2); CARBON DIOXIDE LEVEL 20 MEQ/L (21-32); CHLORIDE LEVEL 104 MEQ/L (98-107); CREATININE FOR GFR 1.16 MG/DL (0.70-1.30); GLOMERULAR FILTRATION RATE > 60.0 (>49); GLUCOSE, FASTING 120 MG/DL (70-100); POTASSIUM SERUM 4.2 MEQ/L (3.5-5.1); SODIUM LEVEL 138 MEQ/L (136-145); TOTAL PROTEIN 7.2 GM/DL (6.4-8.2)
[2021-07-13] MEDS ORDERED: cefTRIAXone SOD 2 GM in D5W MINI-BAG PLUS 50 ML IV ONE (15:55)
[2021-07-13 16:05] LABS: INR 3.36; PROTHROMBIN TIME 34.3 SECONDS (12.7-14.5)
[2021-07-13 16:06] LABS: PARTIAL THROMBOPLASTIN TIME 47.9 SECONDS (25.9-37.0)
[2021-07-13] MEDS ORDERED: NS 500 ML IV ONE (16:10)
[2021-07-13 16:28] LABS: DIGOXIN LEVEL 0.4 NG/ML (0.5-2.0); ETHYL ALCOHOL (ETHANOL) < 0.003 % (0.000-0.010)
[2021-07-13] MEDS ORDERED: DIGOXIN INJ 0.5 MG/2 ML AMP (J1160) IV STA (16:52)
[2021-07-13] MEDS ORDERED: ISOVUE-370 76% 100ML VIAL As Ordered ONE (17:07)
[2021-07-13 18:31] LABS: RSV AMPLIFICATION NEGATIVE (NEGATIVE)
[2021-07-13] MEDS ORDERED: METOPROLOL TART 50 MG TAB PO ONE (18:55)
[2021-07-13] MEDS ORDERED: SPIR-10 PO (20:43)
[2021-07-13] MEDS ORDERED: VENTAER INH (20:43)
[2021-07-13] MEDS ORDERED: TIZA10TA PO (20:43)
[2021-07-13] MEDS ORDERED: PRED10TA2 PO (20:43)
[2021-07-13] MEDS ORDERED: XIFA550T PO (20:43)
[2021-07-13] MEDS ORDERED: DIGO0.253 PO (20:43)
[2021-07-13] MEDS ORDERED: HOME MED LIST COMPLETE! XX SCH (20:45)
[2021-07-13] MEDS ORDERED: NORTRIPTYLINE 25 MG CAP PO SCH (21:00)
[2021-07-13] MEDS ORDERED: tiZANidine 4 MG TAB PO SCH (21:00)
[2021-07-13 21:30] VITALS: BP 112/63
[2021-07-13 21:44] LABS: MAGNESIUM LEVEL 1.7 MG/DL (1.8-2.4)
[2021-07-13 22:00] VITALS: BP 113/76
[2021-07-13 22:00] LABS: AMPHETAMINES LEVEL URINE NEGATIVE (NEGATIVE); BARBITURATES URINE NEGATIVE (NEGATIVE); BENZODIAZEPINES URINE NEGATIVE (NEGATIVE); CANNABINOIDS URINE NEGATIVE (NEGATIVE); COCAINE METABOLITE URINE NEGATIVE (NEGATIVE); METHADONE URINE NEGATIVE (NEGATIVE); OPIATES URINE NEGATIVE (NEGATIVE); PHENCYCLIDINE URINE NEGATIVE (NEGATIVE)
[2021-07-13] MEDS ORDERED: MAGNESIUM OXIDE 400MG TAB (MAG-OX) PO ONE (22:15)
[2021-07-13] MEDS: diltiaZEM 125 MG in NS 100 ML IV SCH (22:39)
[2021-07-13] MEDS: rifAXIMin 550 MG TAB (XIFAXAN) PO SCH (23:46)
[2021-07-14] VITALS (41 sets, daily range): BP systolic 93–129; BP diastolic 51–73
[2021-07-14 05:09] LABS: HEMATOCRIT 36.9 % (42.0-52.0); MEAN CORPUSCULAR HEMOGLOBIN 35.2 pg (27.0-33.0); MEAN CORPUSCULAR HGB CONC 34.1 g/dl (32.0-36.5); MEAN CORPUSCULAR VOLUME 103.1 fl (80.0-96.0); RED BLOOD COUNT 3.58 10^6/uL (4.30-6.10); WHITE BLOOD COUNT 18.8 10^3/uL (4.0-10.0)
[2021-07-14 05:12] LABS: PLATELET COUNT, AUTOMATED 46 10^3/uL (150-450)
[2021-07-14 05:13] LABS: HEMOGLOBIN 12.6 g/dl (13.5-17.5)
[2021-07-14 05:18] LABS: INR 4.41; PROTHROMBIN TIME 42.2 SECONDS (12.7-14.5)
[2021-07-14 05:19] LABS: PARTIAL THROMBOPLASTIN TIME 55.5 SECONDS (25.9-37.0)
[2021-07-14 05:31] LABS: ALBUMIN 1.9 GM/DL (3.2-5.2); ALT/SGPT 45 U/L (12-78); BILIRUBIN,TOTAL 11.6 MG/DL (0.2-1.0); BLOOD UREA NITROGEN 17 MG/DL (7-18); CALCIUM LEVEL 9.3 MG/DL (8.8-10.2); CARBON DIOXIDE LEVEL 16 MEQ/L (21-32); CHLORIDE LEVEL 105 MEQ/L (98-107); CREATININE FOR GFR 1.16 MG/DL (0.70-1.30); GLOMERULAR FILTRATION RATE > 60.0 (>49); GLUCOSE, FASTING 137 MG/DL (70-100); MAGNESIUM LEVEL 1.7 MG/DL (1.8-2.4); POTASSIUM SERUM 4.3 MEQ/L (3.5-5.1); SODIUM LEVEL 136 MEQ/L (136-145); TOTAL PROTEIN 6.3 GM/DL (6.4-8.2)
[2021-07-14 05:39] LABS: LYMPHOCYTES 1 % (16-44); MONOCYTES 5 % (0-5); NEUTROPHILS 89 % (28-66); PLATELET ESTIMATE MARKED DECREASE (NORMAL)
[2021-07-14 05:40] LABS: POIKILOCYTOSIS 1+
[2021-07-14 05:41] LABS: TOXIC VACUOLATION 1+
[2021-07-14] MEDS ORDERED: PANTOPRAZOLE 40MG VIAL IV ONE (06:00)
[2021-07-14] MEDS ORDERED: LACTULOSE 20 GM/30 ML SYRUP UD PO PRN (06:25)
[2021-07-14] MEDS: LACTULOSE 20 GM/30 ML SYRUP UD PO SCH ×4 (06:40→23:50)
[2021-07-14] MEDS ORDERED: THIAMINE 100 MG TAB PO ONE (07:10)
[2021-07-14] MEDS ORDERED: FOLIC ACID 1 MG TAB PO ONE (07:10)
[2021-07-14 08:05] LABS: ABG BASE EXCESS -5.3 (-2.0-2.0); ABG HCO3 17.8 MEQ/L (22.0-26.0); ABG O2 SATURATION 88.3 % (95.0-99.0); ABG PARTIAL PRESSURE CO2 28.1 mmHg (35.0-45.0); ABG PARTIAL PRESSURE O2 53.9 mmHg (75.0-100.0); ABG STANDARD HCO3 19.9 MEQ/L (22.0-26.0); ABG TOTAL CO2 18.7 MEQ/L (23.0-31.0)
[2021-07-14] MEDS ORDERED: MAG SULF 1GM/100ML (MAG RUN) 1 GM in IV 1 EA IV ONE (08:25)
[2021-07-14] MEDS: METOPROLOL TART 50 MG TAB PO SCH ×3 (09:00→20:15)
[2021-07-14] MEDS: SPIRONOLACTONE 25 MG TAB PO SCH ×2 (09:00→09:32)
[2021-07-14] MEDS: FUROSEMIDE 20MG/2ML VIAL (J1940) IV SCH ×3 (09:00→17:00)
[2021-07-14] MEDS: DIGOXIN 0.25 MG TAB PO SCH (09:30)
[2021-07-14] MEDS: MONTELUKAST 10 MG TAB PO SCH (09:30)
[2021-07-14] MEDS: rifAXIMin 550 MG TAB (XIFAXAN) PO SCH ×2 (09:30→20:10)
[2021-07-14] MEDS: SERTRALINE HCL 50 MG TAB PO SCH (09:30)
[2021-07-14] MEDS: predniSONE 10 MG TAB PO SCH (09:31)
[2021-07-14] MEDS: diltiaZEM 125 MG in NS 100 ML IV SCH ×2 (09:33→23:03)
[2021-07-14] MEDS ORDERED: DIGOXIN INJ 0.5 MG/2 ML AMP (J1160) IV STA ×2 (12:50→22:24)
[2021-07-14] MEDS: PIPERACILLIN/TAZOBACTAM SOD 3.375 GM in D5W MINI-BAG PLUS 50 ML IV SCH ×2 (13:18→19:49)
[2021-07-14 13:57] LABS: HEMATOCRIT 33.1 % (42.0-52.0); HEMOGLOBIN 11.2 g/dl (13.5-17.5); MEAN CORPUSCULAR HGB CONC 33.8 g/dl (32.0-36.5); MEAN CORPUSCULAR VOLUME 103.4 fl (80.0-96.0); WHITE BLOOD COUNT 13.4 10^3/uL (4.0-10.0)
[2021-07-14 13:58] LABS: PLATELET COUNT, AUTOMATED 47 10^3/uL (150-450)
[2021-07-14 14:07] LABS: INR 3.18; PROTHROMBIN TIME 32.9 SECONDS (12.7-14.5)
[2021-07-14 14:19] LABS: LYMPHOCYTES 1 % (16-44); MONOCYTES 11 % (0-5); NEUTROPHILS 58 % (28-66)
[2021-07-14 14:21] LABS: PLATELET ESTIMATE DECREASED (NORMAL); TEAR DROP CELLS 1+
[2021-07-14 14:22] LABS: OVALOCYTES 1+
[2021-07-14 14:30] LABS: ALBUMIN 2.1 GM/DL (3.2-5.2); ALT/SGPT 39 U/L (12-78); BILIRUBIN,TOTAL 11.9 MG/DL (0.2-1.0); BLOOD UREA NITROGEN 22 MG/DL (7-18); CARBON DIOXIDE LEVEL 24 MEQ/L (21-32); CHLORIDE LEVEL 104 MEQ/L (98-107); CREATININE FOR GFR 1.11 MG/DL (0.70-1.30); GLOMERULAR FILTRATION RATE > 60.0 (>49); GLUCOSE, FASTING 165 MG/DL (70-100); MAGNESIUM LEVEL 2.1 MG/DL (1.8-2.4); POTASSIUM SERUM 4.1 MEQ/L (3.5-5.1); SODIUM LEVEL 135 MEQ/L (136-145); TOTAL PROTEIN 5.7 GM/DL (6.4-8.2)
[2021-07-14] MEDS: VANCOMYCIN HCL 1,000 MG, VIAL MATE ADAPTER 1 EACH in NS 250 ML IV SCH (15:36)
[2021-07-14] MEDS ORDERED: cefTRIAXone SOD 1 GM in D5W MINI-BAG PLUS 50 ML IV SCH ×4 (16:00)
[2021-07-14] MEDS ORDERED: VANCOMYCIN HCL 750 MG, VIAL MATE ADAPTER 1 EACH in NS 250 ML IV ONE (16:00)
[2021-07-14] MEDS ORDERED: DIGOXIN INJ 0.5 MG/2 ML AMP (J1160) IV ONE (19:30)
[2021-07-15] VITALS (42 sets, daily range): BP systolic 83–110; BP diastolic 50–68
[2021-07-15] MEDS: LEVALBUTEROL 1.25 MG/0.5 ML CONCENTRATE NEB INH PRN ×2 (00:28→08:42)
[2021-07-15] MEDS: PIPERACILLIN/TAZOBACTAM SOD 3.375 GM in D5W MINI-BAG PLUS 50 ML IV SCH ×4 (01:17→19:24)
[2021-07-15] MEDS ORDERED: VERAPAMIL 5MG/2ML VIAL IV SCH (02:00)
[2021-07-15] MEDS: diltiaZEM 125 MG in NS 100 ML IV SCH (02:20)
[2021-07-15] MEDS ORDERED: diltiaZEM 125 MG in NS 100 ML IV SCH (02:25)
[2021-07-15] MEDS: VANCOMYCIN HCL 1,000 MG, VIAL MATE ADAPTER 1 EACH in NS 250 ML IV SCH (02:36)
[2021-07-15 05:20] LABS: BASO % 0.1 % (0.0-1.0); EOS # 0.1 10^3/uL (0.0-0.5); EOS % 0.7 % (0.0-3.0); HEMATOCRIT 29.8 % (42.0-52.0); HEMOGLOBIN 10.4 g/dl (13.5-17.5); LYMPH # 1.2 10^3/uL (1.5-5.0); LYMPH % 8.9 % (24.0-44.0); MEAN CORPUSCULAR HEMOGLOBIN 35.3 pg (27.0-33.0); MEAN CORPUSCULAR HGB CONC 34.9 g/dl (32.0-36.5); MONO # 1.4 10^3/uL (0.0-0.8); MONO % 10.3 % (2.0-8.0); NEUTROPHILS # 10.9 10^3/uL (1.5-8.5); NEUTROPHILS % 79.5 % (36.0-66.0); PLATELET COUNT, AUTOMATED 41 10^3/uL (150-450); RED BLOOD COUNT 2.95 10^6/uL (4.30-6.10); WHITE BLOOD COUNT 13.7 10^3/uL (4.0-10.0)
[2021-07-15 05:26] LABS: INR 2.73; PROTHROMBIN TIME 29.3 SECONDS (12.7-14.5)
[2021-07-15 05:45] LABS: ALBUMIN 2.1 GM/DL (3.2-5.2); ALT/SGPT 35 U/L (12-78); BILIRUBIN,TOTAL 12.1 MG/DL (0.2-1.0); BLOOD UREA NITROGEN 17 MG/DL (7-18); CALCIUM LEVEL 9.3 MG/DL (8.8-10.2); CARBON DIOXIDE LEVEL 27 MEQ/L (21-32); CHLORIDE LEVEL 105 MEQ/L (98-107); GLOMERULAR FILTRATION RATE > 60.0 (>49); GLUCOSE, FASTING 106 MG/DL (70-100); MAGNESIUM LEVEL 1.9 MG/DL (1.8-2.4); POTASSIUM SERUM 3.6 MEQ/L (3.5-5.1); SODIUM LEVEL 138 MEQ/L (136-145); TOTAL PROTEIN 5.7 GM/DL (6.4-8.2)
[2021-07-15] MEDS: LACTULOSE 20 GM/30 ML SYRUP UD PO SCH ×4 (05:55→23:41)
[2021-07-15] MEDS: SPIRONOLACTONE 25 MG TAB PO SCH (08:25)
[2021-07-15] MEDS: SERTRALINE HCL 50 MG TAB PO SCH (08:25)
[2021-07-15] MEDS: rifAXIMin 550 MG TAB (XIFAXAN) PO SCH ×2 (08:25→22:00)
[2021-07-15] MEDS: DIGOXIN 0.25 MG TAB PO SCH (08:27)
[2021-07-15] MEDS: METOPROLOL TART 50 MG TAB PO SCH ×2 (08:27→20:03)
[2021-07-15] MEDS: FUROSEMIDE 20MG/2ML VIAL (J1940) IV SCH ×2 (08:27→17:00)
[2021-07-15] MEDS: predniSONE 10 MG TAB PO SCH (08:27)
[2021-07-15] MEDS: MONTELUKAST 10 MG TAB PO SCH (08:27)
[2021-07-15 14:10] LABS: INR 2.26; PROTHROMBIN TIME 25.3 SECONDS (12.7-14.5)
[2021-07-15] MEDS: MIDODRINE 5 MG TAB PO SCH (16:43)
[2021-07-15 16:50] LABS: APPEARANCE, BODY FLUID CLOUDY (CLEAR); ASCITES FL COLOR YELLOW (COLORLESS); SOURCE, BODY FLUID ASCITES
[2021-07-15 17:06] LABS: SOURCE, BODY FLUID ALBUMIN ASCITES; SOURCE, BODY FLUID GLUCOSE ASCITES; SOURCE, BODY FLUID TOT PROTEIN ASCITES; TOTAL PROTEIN, BODY FLUID 0.6 G/DL (NOT ESTABLISHED)
[2021-07-15 17:35] LABS: SPEC. GRAVITY BODY FLUIDS 1.008 (NOT ESTABLISHED)
[2021-07-15] MEDS ORDERED: PANTOPRAZOLE 40MG VIAL IV SCH (21:00)
[2021-07-15] MEDS: NORTRIPTYLINE 25 MG CAP PO SCH (22:00)
[2021-07-16] VITALS (26 sets, daily range): BP systolic 89–114; BP diastolic 52–71
[2021-07-16] MEDS: PIPERACILLIN/TAZOBACTAM SOD 3.375 GM in D5W MINI-BAG PLUS 50 ML IV SCH ×4 (02:44→20:13)
[2021-07-16 05:20] LABS: BASO % 0.1 % (0.0-1.0); EOS # 0.1 10^3/uL (0.0-0.5); EOS % 1.4 % (0.0-3.0); HEMATOCRIT 26.2 % (42.0-52.0); LYMPH % 12.7 % (24.0-44.0); MEAN CORPUSCULAR HEMOGLOBIN 35.3 pg (27.0-33.0); MEAN CORPUSCULAR HGB CONC 34.4 g/dl (32.0-36.5); MEAN CORPUSCULAR VOLUME 102.7 fl (80.0-96.0); MONO # 0.9 10^3/uL (0.0-0.8); MONO % 11.1 % (2.0-8.0); NEUTROPHILS % 73.8 % (36.0-66.0); RED BLOOD COUNT 2.55 10^6/uL (4.30-6.10); WHITE BLOOD COUNT 8.1 10^3/uL (4.0-10.0)
[2021-07-16 05:22] LABS: PLATELET COUNT, AUTOMATED 40 10^3/uL (150-450)
[2021-07-16 05:30] LABS: INR 2.37; PROTHROMBIN TIME 26.3 SECONDS (12.7-14.5)
[2021-07-16 05:34] LABS: ALBUMIN 2.5 GM/DL (3.2-5.2); ALT/SGPT 25 U/L (12-78); BILIRUBIN,TOTAL 11.7 MG/DL (0.2-1.0); BLOOD UREA NITROGEN 11 MG/DL (7-18); CARBON DIOXIDE LEVEL 28 MEQ/L (21-32); CHLORIDE LEVEL 106 MEQ/L (98-107); GLOMERULAR FILTRATION RATE > 60.0 (>49); GLUCOSE, FASTING 109 MG/DL (70-100); MAGNESIUM LEVEL 1.6 MG/DL (1.8-2.4); POTASSIUM SERUM 3.1 MEQ/L (3.5-5.1); SODIUM LEVEL 141 MEQ/L (136-145); TOTAL PROTEIN 5.5 GM/DL (6.4-8.2)
[2021-07-16] MEDS: LACTULOSE 20 GM/30 ML SYRUP UD PO SCH ×4 (06:07→23:09)
[2021-07-16] MEDS ORDERED: MAG SULF 1GM/100ML (MAG RUN) 1 GM in IV 1 EA IV ONE (07:00)
[2021-07-16] MEDS ORDERED: POTASSIUM CHLORIDE 10MEQ SR TABLET PO ONE (08:00)
[2021-07-16] MEDS: predniSONE 10 MG TAB PO SCH (08:56)
[2021-07-16] MEDS: METOPROLOL TART 50 MG TAB PO SCH ×2 (08:57→20:20)
[2021-07-16] MEDS: MONTELUKAST 10 MG TAB PO SCH (08:58)
[2021-07-16] MEDS: MIDODRINE 5 MG TAB PO SCH ×3 (08:58→15:46)
[2021-07-16] MEDS: SERTRALINE HCL 50 MG TAB PO SCH (08:58)
[2021-07-16] MEDS: rifAXIMin 550 MG TAB (XIFAXAN) PO SCH ×2 (08:58→20:20)
[2021-07-16] MEDS: OMEPRAZOLE 20MG CAP PO SCH (08:59)
[2021-07-16] MEDS: DIGOXIN 0.25 MG TAB PO SCH (08:59)
[2021-07-16] MEDS: FUROSEMIDE 20 MG TAB PO SCH (08:59)
[2021-07-16] MEDS: SPIRONOLACTONE 25 MG TAB PO SCH (09:00)
[2021-07-16] MEDS: NORTRIPTYLINE 25 MG CAP PO SCH (20:20)
[2021-07-17] VITALS: BP 108/69
[2021-07-17] MEDS: PIPERACILLIN/TAZOBACTAM SOD 3.375 GM in D5W MINI-BAG PLUS 50 ML IV SCH ×4 (01:34→20:27)
[2021-07-17 04:00] VITALS: BP 100/70
[2021-07-17] MEDS: LACTULOSE 20 GM/30 ML SYRUP UD PO SCH ×4 (05:03→23:32)
[2021-07-17 06:17] LABS: BASO % 0.3 % (0.0-1.0); EOS # 0.2 10^3/uL (0.0-0.5); EOS % 2.1 % (0.0-3.0); HEMATOCRIT 32.1 % (42.0-52.0); LYMPH # 1.5 10^3/uL (1.5-5.0); LYMPH % 15.3 % (24.0-44.0); MEAN CORPUSCULAR HEMOGLOBIN 34.7 pg (27.0-33.0); MEAN CORPUSCULAR HGB CONC 34.3 g/dl (32.0-36.5); MEAN CORPUSCULAR VOLUME 101.3 fl (80.0-96.0); MONO # 1.2 10^3/uL (0.0-0.8); MONO % 12.4 % (2.0-8.0); NEUTROPHILS # 6.8 10^3/uL (1.5-8.5); NEUTROPHILS % 68.7 % (36.0-66.0); RED BLOOD COUNT 3.17 10^6/uL (4.30-6.10)
[2021-07-17 06:22] LABS: PLATELET COUNT, AUTOMATED 44 10^3/uL (150-450)
[2021-07-17 06:30] LABS: INR 2.22
[2021-07-17 06:51] LABS: ALBUMIN 2.4 GM/DL (3.2-5.2); ALT/SGPT 39 U/L (12-78); BLOOD UREA NITROGEN 6 MG/DL (7-18); CALCIUM LEVEL 8.2 MG/DL (8.8-10.2); CARBON DIOXIDE LEVEL 28 MEQ/L (21-32); CHLORIDE LEVEL 103 MEQ/L (98-107); CREATININE FOR GFR 0.63 MG/DL (0.70-1.30); GLOMERULAR FILTRATION RATE > 60.0 (>49); GLUCOSE, FASTING 125 MG/DL (70-100); MAGNESIUM LEVEL 1.6 MG/DL (1.8-2.4); POTASSIUM SERUM 3.4 MEQ/L (3.5-5.1); SODIUM LEVEL 135 MEQ/L (136-145)
[2021-07-17] MEDS: MAG SULF 1GM/100ML (MAG RUN) 1 GM in IV 1 EA IV SCH ×2 (07:52→10:28)
[2021-07-17 07:56] VITALS: BP 90/56
[2021-07-17] MEDS: FUROSEMIDE 20 MG TAB PO SCH (09:00)
[2021-07-17] MEDS: METOPROLOL TART 50 MG TAB PO SCH ×2 (09:00→20:28)
[2021-07-17] MEDS: SERTRALINE HCL 50 MG TAB PO SCH (09:02)
[2021-07-17] MEDS: rifAXIMin 550 MG TAB (XIFAXAN) PO SCH ×2 (09:03→20:27)
[2021-07-17] MEDS: DIGOXIN 0.25 MG TAB PO SCH (09:03)
[2021-07-17] MEDS: OMEPRAZOLE 20MG CAP PO SCH (09:03)
[2021-07-17] MEDS: predniSONE 10 MG TAB PO SCH (09:04)
[2021-07-17] MEDS: POTASSIUM CHLORIDE 10MEQ SR TABLET PO SCH (09:04)
[2021-07-17] MEDS: SPIRONOLACTONE 25 MG TAB PO SCH (09:05)
[2021-07-17] MEDS: MONTELUKAST 10 MG TAB PO SCH (09:05)
[2021-07-17] MEDS: MIDODRINE 5 MG TAB PO SCH ×3 (09:06→17:14)
[2021-07-17 12:28] VITALS: BP 120/78
[2021-07-17] MEDS ORDERED: METOPROLOL TART 50 MG TAB PO ONE (13:30)
[2021-07-17] MEDS ORDERED: FUROSEMIDE 40MG/4ML VIAL (J1940) IV ONE (14:00)
[2021-07-17 16:00] VITALS: BP 106/67
[2021-07-17 19:52] VITALS: BP 103/63
[2021-07-17] MEDS: NORTRIPTYLINE 25 MG CAP PO SCH (20:28)
[2021-07-17] MEDS ORDERED: ASPIRIN 81 MG CHEW TABLET PO ONE (21:00)
[2021-07-17 21:14] LABS: CK-MB VALUE MASS 1.1 NG/ML (<3.6); MB/CK RELATIVE INDEX 2.75 (< OR =4)
[2021-07-18] VITALS (15 sets, daily range): BP systolic 80–126; BP diastolic 50–80
[2021-07-18] MEDS ORDERED: diltiaZEM 125 MG in NS 100 ML IV SCH ×2 (01:00→04:14)
[2021-07-18] MEDS: PIPERACILLIN/TAZOBACTAM SOD 3.375 GM in D5W MINI-BAG PLUS 50 ML IV SCH ×4 (01:17→19:56)
[2021-07-18] MEDS: LACTULOSE 20 GM/30 ML SYRUP UD PO SCH ×4 (05:07→23:21)
[2021-07-18 06:04] LABS: BASO % 0.4 % (0.0-1.0); EOS # 0.3 10^3/uL (0.0-0.5); EOS % 2.4 % (0.0-3.0); HEMATOCRIT 34.2 % (42.0-52.0); HEMOGLOBIN 11.7 g/dl (13.5-17.5); LYMPH % 19.8 % (24.0-44.0); MEAN CORPUSCULAR HEMOGLOBIN 34.5 pg (27.0-33.0); MEAN CORPUSCULAR HGB CONC 34.2 g/dl (32.0-36.5); MEAN CORPUSCULAR VOLUME 100.9 fl (80.0-96.0); MONO # 1.3 10^3/uL (0.0-0.8); MONO % 12.2 % (2.0-8.0); NEUTROPHILS # 6.5 10^3/uL (1.5-8.5); NEUTROPHILS % 63.4 % (36.0-66.0); RED BLOOD COUNT 3.39 10^6/uL (4.30-6.10); WHITE BLOOD COUNT 10.3 10^3/uL (4.0-10.0)
[2021-07-18 06:07] LABS: PLATELET COUNT, AUTOMATED 50 10^3/uL (150-450)
[2021-07-18 06:12] LABS: INR 2.49; PROTHROMBIN TIME 27.3 SECONDS (12.7-14.5)
[2021-07-18 06:24] LABS: ALBUMIN 2.2 GM/DL (3.2-5.2); ALT/SGPT 35 U/L (12-78); BILIRUBIN,TOTAL 10.4 MG/DL (0.2-1.0); BLOOD UREA NITROGEN 5 MG/DL (7-18); CALCIUM LEVEL 8.6 MG/DL (8.8-10.2); CARBON DIOXIDE LEVEL 26 MEQ/L (21-32); CHLORIDE LEVEL 106 MEQ/L (98-107); CREATININE FOR GFR 0.47 MG/DL (0.70-1.30); GLOMERULAR FILTRATION RATE > 60.0 (>49); GLUCOSE, FASTING 102 MG/DL (70-100); MAGNESIUM LEVEL 1.6 MG/DL (1.8-2.4); POTASSIUM SERUM 3.4 MEQ/L (3.5-5.1); SODIUM LEVEL 138 MEQ/L (136-145); TOTAL PROTEIN 5.6 GM/DL (6.4-8.2)
[2021-07-18] MEDS ORDERED: POTASSIUM CHLORIDE 10MEQ SR TABLET PO ONE (07:15)
[2021-07-18] MEDS: MAG SULF 1GM/100ML (MAG RUN) 1 GM in IV 1 EA IV SCH ×2 (07:17→09:03)
[2021-07-18] MEDS: rifAXIMin 550 MG TAB (XIFAXAN) PO SCH ×2 (08:08→20:01)
[2021-07-18] MEDS: predniSONE 10 MG TAB PO SCH (08:08)
[2021-07-18] MEDS: OMEPRAZOLE 20MG CAP PO SCH (08:08)
[2021-07-18] MEDS: SERTRALINE HCL 50 MG TAB PO SCH (08:09)
[2021-07-18] MEDS: DIGOXIN 0.25 MG TAB PO SCH (08:09)
[2021-07-18] MEDS: MONTELUKAST 10 MG TAB PO SCH (08:10)
[2021-07-18] MEDS: SPIRONOLACTONE 25 MG TAB PO SCH (08:10)
[2021-07-18] MEDS: MIDODRINE 5 MG TAB PO SCH ×3 (08:10→16:30)
[2021-07-18] MEDS: POTASSIUM CHLORIDE 10MEQ SR TABLET PO SCH (09:53)
[2021-07-18] MEDS: METOPROLOL TART 50 MG TAB PO SCH (09:53)
[2021-07-18] MEDS: FUROSEMIDE 20 MG TAB PO SCH (09:53)
[2021-07-18] MEDS: NORTRIPTYLINE 25 MG CAP PO SCH (20:00)
[2021-07-19] MEDS: PIPERACILLIN/TAZOBACTAM SOD 3.375 GM in D5W MINI-BAG PLUS 50 ML IV SCH ×2 (01:00→08:21)
[2021-07-19 04:35] VITALS: BP 99/59
[2021-07-19] MEDS: LACTULOSE 20 GM/30 ML SYRUP UD PO SCH ×4 (05:02→23:09)
[2021-07-19] MEDS: BACTRIM 160MG/800MG DS TAB PO SCH ×2 (06:16→21:03)
[2021-07-19 06:24] LABS: BASO # 0.1 10^3/uL (0.0-0.2); BASO % 0.7 % (0.0-1.0); EOS # 0.3 10^3/uL (0.0-0.5); EOS % 2.9 % (0.0-3.0); HEMATOCRIT 35.2 % (42.0-52.0); HEMOGLOBIN 12.1 g/dl (13.5-17.5); LYMPH # 2.2 10^3/uL (1.5-5.0); LYMPH % 19.3 % (24.0-44.0); MEAN CORPUSCULAR HEMOGLOBIN 35.2 pg (27.0-33.0); MEAN CORPUSCULAR HGB CONC 34.4 g/dl (32.0-36.5); MEAN CORPUSCULAR VOLUME 102.3 fl (80.0-96.0); MONO % 13.5 % (2.0-8.0); NEUTROPHILS % 60.6 % (36.0-66.0); RED BLOOD COUNT 3.44 10^6/uL (4.30-6.10); WHITE BLOOD COUNT 11.6 10^3/uL (4.0-10.0)
[2021-07-19 06:38] LABS: INR 2.29; PROTHROMBIN TIME 25.6 SECONDS (12.7-14.5)
[2021-07-19 06:59] LABS: MONO # 1.6 10^3/uL (0.0-0.8); PLATELET COUNT, AUTOMATED 62 10^3/uL (150-450)
[2021-07-19 07:01] LABS: ALBUMIN 2.2 GM/DL (3.2-5.2); ALT/SGPT 39 U/L (12-78); BILIRUBIN,TOTAL 9.4 MG/DL (0.2-1.0); BLOOD UREA NITROGEN 5 MG/DL (7-18); CALCIUM LEVEL 8.4 MG/DL (8.8-10.2); CARBON DIOXIDE LEVEL 26 MEQ/L (21-32); CHLORIDE LEVEL 105 MEQ/L (98-107); CREATININE FOR GFR 0.58 MG/DL (0.70-1.30); GLOMERULAR FILTRATION RATE > 60.0 (>49); GLUCOSE, FASTING 107 MG/DL (70-100); MAGNESIUM LEVEL 1.6 MG/DL (1.8-2.4); POTASSIUM SERUM 4.2 MEQ/L (3.5-5.1); SODIUM LEVEL 135 MEQ/L (136-145)
[2021-07-19 08:13] VITALS: BP 98/62
[2021-07-19] MEDS: POTASSIUM CHLORIDE 10MEQ SR TABLET PO SCH (08:22)
[2021-07-19] MEDS: SPIRONOLACTONE 25 MG TAB PO SCH (08:22)
[2021-07-19] MEDS: OMEPRAZOLE 20MG CAP PO SCH (08:22)
[2021-07-19] MEDS: MONTELUKAST 10 MG TAB PO SCH (08:23)
[2021-07-19] MEDS: rifAXIMin 550 MG TAB (XIFAXAN) PO SCH ×2 (08:23→21:03)
[2021-07-19] MEDS: SERTRALINE HCL 50 MG TAB PO SCH (08:23)
[2021-07-19] MEDS: MIDODRINE 5 MG TAB PO SCH ×3 (08:23→16:04)
[2021-07-19] MEDS: predniSONE 10 MG TAB PO SCH (08:23)
[2021-07-19] MEDS: FUROSEMIDE 20 MG TAB PO SCH (08:24)
[2021-07-19 08:26] VITALS: BP 98/62
[2021-07-19] MEDS: DIGOXIN 0.25 MG TAB PO SCH (08:26)
[2021-07-19] MEDS: MAG SULF 1GM/100ML (MAG RUN) 1 GM in IV 1 EA IV SCH ×2 (10:25→11:25)
[2021-07-19 11:52] VITALS: BP 137/65
[2021-07-19 16:42] VITALS: BP 112/60
[2021-07-19 20:00] VITALS: BP 110/74
[2021-07-19] MEDS: NORTRIPTYLINE 25 MG CAP PO SCH (21:03)
[2021-07-20] VITALS (8 sets, daily range): BP systolic 93–139; BP diastolic 60–88
[2021-07-20] MEDS ORDERED: METOPROLOL 5 MG/5 ML VIAL IV STA (01:08)
[2021-07-20 04:34] LABS: BASO # 0.1 10^3/uL (0.0-0.2); BASO % 0.6 % (0.0-1.0); EOS # 0.3 10^3/uL (0.0-0.5); EOS % 2.8 % (0.0-3.0); HEMATOCRIT 34.2 % (42.0-52.0); LYMPH # 2.3 10^3/uL (1.5-5.0); LYMPH % 21.3 % (24.0-44.0); MEAN CORPUSCULAR HEMOGLOBIN 35.7 pg (27.0-33.0); MEAN CORPUSCULAR HGB CONC 35.1 g/dl (32.0-36.5); MEAN CORPUSCULAR VOLUME 101.8 fl (80.0-96.0); MONO % 15.2 % (2.0-8.0); NEUTROPHILS # 6.3 10^3/uL (1.5-8.5); NEUTROPHILS % 57.6 % (36.0-66.0); RED BLOOD COUNT 3.36 10^6/uL (4.30-6.10); WHITE BLOOD COUNT 10.8 10^3/uL (4.0-10.0)
[2021-07-20 04:35] LABS: MONO # 1.7 10^3/uL (0.0-0.8); PLATELET COUNT, AUTOMATED 73 10^3/uL (150-450)
[2021-07-20 04:53] LABS: ALBUMIN 2.3 GM/DL (3.2-5.2); ALT/SGPT 40 U/L (12-78); BILIRUBIN,TOTAL 8.9 MG/DL (0.2-1.0); BLOOD UREA NITROGEN 5 MG/DL (7-18); CALCIUM LEVEL 8.4 MG/DL (8.8-10.2); CARBON DIOXIDE LEVEL 24 MEQ/L (21-32); CHLORIDE LEVEL 105 MEQ/L (98-107); CREATININE FOR GFR 0.51 MG/DL (0.70-1.30); GLOMERULAR FILTRATION RATE > 60.0 (>49); GLUCOSE, FASTING 138 MG/DL (70-100); MAGNESIUM LEVEL 1.9 MG/DL (1.8-2.4); POTASSIUM SERUM 3.8 MEQ/L (3.5-5.1); SODIUM LEVEL 136 MEQ/L (136-145); TOTAL PROTEIN 6.1 GM/DL (6.4-8.2)
[2021-07-20] MEDS: LACTULOSE 20 GM/30 ML SYRUP UD PO SCH ×4 (06:13→23:37)
[2021-07-20] MEDS: POTASSIUM CHLORIDE 10MEQ SR TABLET PO SCH (08:12)
[2021-07-20] MEDS: OMEPRAZOLE 20MG CAP PO SCH (08:12)
[2021-07-20] MEDS: MIDODRINE 5 MG TAB PO SCH ×3 (08:13→16:27)
[2021-07-20] MEDS: SERTRALINE HCL 50 MG TAB PO SCH (08:13)
[2021-07-20] MEDS: MONTELUKAST 10 MG TAB PO SCH (08:13)
[2021-07-20] MEDS: rifAXIMin 550 MG TAB (XIFAXAN) PO SCH ×2 (08:13→20:03)
[2021-07-20] MEDS: BACTRIM 160MG/800MG DS TAB PO SCH ×2 (08:13→20:03)
[2021-07-20] MEDS: predniSONE 10 MG TAB PO SCH (08:14)
[2021-07-20] MEDS: FUROSEMIDE 20 MG TAB PO SCH (08:14)
[2021-07-20] MEDS: SPIRONOLACTONE 25 MG TAB PO SCH (08:15)
[2021-07-20] MEDS: DIGOXIN 0.25 MG TAB PO SCH (08:16)
[2021-07-20 09:21] LABS: INR 2.12; PROTHROMBIN TIME 24.1 SECONDS (12.7-14.5)
[2021-07-20] MEDS: NORTRIPTYLINE 25 MG CAP PO SCH (20:03)
[2021-07-21] VITALS (8 sets, daily range): BP systolic 118–136; BP diastolic 70–84
[2021-07-21] MEDS: LACTULOSE 20 GM/30 ML SYRUP UD PO SCH ×3 (06:01→17:09)
[2021-07-21 06:30] LABS: BASO # 0.1 10^3/uL (0.0-0.2); BASO % 0.7 % (0.0-1.0); EOS # 0.3 10^3/uL (0.0-0.5); EOS % 2.4 % (0.0-3.0); HEMATOCRIT 33.9 % (42.0-52.0); HEMOGLOBIN 11.4 g/dl (13.5-17.5); LYMPH # 2.8 10^3/uL (1.5-5.0); LYMPH % 20.7 % (24.0-44.0); MEAN CORPUSCULAR HEMOGLOBIN 34.5 pg (27.0-33.0); MEAN CORPUSCULAR HGB CONC 33.6 g/dl (32.0-36.5); MEAN CORPUSCULAR VOLUME 102.7 fl (80.0-96.0); MONO % 13.8 % (2.0-8.0); NEUTROPHILS # 8.2 10^3/uL (1.5-8.5); NEUTROPHILS % 60.4 % (36.0-66.0); WHITE BLOOD COUNT 13.6 10^3/uL (4.0-10.0)
[2021-07-21 06:37] LABS: INR 2.28; PROTHROMBIN TIME 25.5 SECONDS (12.7-14.5)
[2021-07-21 06:50] LABS: ALBUMIN 2.5 GM/DL (3.2-5.2); ALT/SGPT 50 U/L (12-78); BILIRUBIN,TOTAL 9.9 MG/DL (0.2-1.0); BLOOD UREA NITROGEN 6 MG/DL (7-18); CALCIUM LEVEL 8.8 MG/DL (8.8-10.2); CARBON DIOXIDE LEVEL 25 MEQ/L (21-32); CHLORIDE LEVEL 101 MEQ/L (98-107); CREATININE FOR GFR 0.57 MG/DL (0.70-1.30); GLOMERULAR FILTRATION RATE > 60.0 (>49); GLUCOSE, FASTING 122 MG/DL (70-100); MAGNESIUM LEVEL 1.7 MG/DL (1.8-2.4); POTASSIUM SERUM 4.4 MEQ/L (3.5-5.1); SODIUM LEVEL 132 MEQ/L (136-145); TOTAL PROTEIN 6.3 GM/DL (6.4-8.2)
[2021-07-21 07:06] LABS: MONO # 1.9 10^3/uL (0.0-0.8); PLATELET COUNT, AUTOMATED 83 10^3/uL (150-450)
[2021-07-21] MEDS: MIDODRINE 5 MG TAB PO SCH ×3 (07:51→16:00)
[2021-07-21] MEDS: rifAXIMin 550 MG TAB (XIFAXAN) PO SCH ×2 (08:26→21:14)
[2021-07-21] MEDS: POTASSIUM CHLORIDE 10MEQ SR TABLET PO SCH (08:26)
[2021-07-21] MEDS: OMEPRAZOLE 20MG CAP PO SCH (08:26)
[2021-07-21] MEDS: SERTRALINE HCL 50 MG TAB PO SCH (08:27)
[2021-07-21] MEDS: DIGOXIN 0.25 MG TAB PO SCH (08:27)
[2021-07-21] MEDS: BACTRIM 160MG/800MG DS TAB PO SCH ×2 (08:27→21:14)
[2021-07-21] MEDS: SPIRONOLACTONE 25 MG TAB PO SCH (08:27)
[2021-07-21] MEDS: MONTELUKAST 10 MG TAB PO SCH (08:27)
[2021-07-21] MEDS: FUROSEMIDE 20 MG TAB PO SCH (08:28)
[2021-07-21] MEDS: predniSONE 10 MG TAB PO SCH (08:28)
[2021-07-21] MEDS: WARFARIN SOD 3MG TAB PO SCH (17:08)
[2021-07-21] MEDS: NORTRIPTYLINE 25 MG CAP PO SCH (21:14)
[2021-07-22] VITALS (7 sets, daily range): BP systolic 131–141; BP diastolic 60–82
[2021-07-22] MEDS: LACTULOSE 20 GM/30 ML SYRUP UD PO SCH ×5 (00:21→23:34)
[2021-07-22] MEDS: MIDODRINE 5 MG TAB PO SCH ×3 (08:00→16:00)
[2021-07-22 08:50] LABS: HEMATOCRIT 32.6 % (42.0-52.0); HEMOGLOBIN 11.3 g/dl (13.5-17.5); MEAN CORPUSCULAR HEMOGLOBIN 34.8 pg (27.0-33.0); MEAN CORPUSCULAR HGB CONC 34.7 g/dl (32.0-36.5); MEAN CORPUSCULAR VOLUME 100.3 fl (80.0-96.0); RED BLOOD COUNT 3.25 10^6/uL (4.30-6.10); WHITE BLOOD COUNT 16.9 10^3/uL (4.0-10.0)
[2021-07-22 08:52] LABS: PLATELET COUNT, AUTOMATED 92 10^3/uL (150-450)
[2021-07-22 08:59] LABS: INR 2.33; PROTHROMBIN TIME 25.9 SECONDS (12.7-14.5)
[2021-07-22] MEDS ORDERED: FLECAINIDE 50MG TABLET PO SCH (09:00)
[2021-07-22 09:24] LABS: ALBUMIN 2.7 GM/DL (3.2-5.2); ALT/SGPT 56 U/L (12-78); BILIRUBIN,TOTAL 11.8 MG/DL (0.2-1.0); BLOOD UREA NITROGEN 9 MG/DL (7-18); CALCIUM LEVEL 9.6 MG/DL (8.8-10.2); CARBON DIOXIDE LEVEL 25 MEQ/L (21-32); CHLORIDE LEVEL 98 MEQ/L (98-107); CREATININE FOR GFR 0.86 MG/DL (0.70-1.30); GLOMERULAR FILTRATION RATE > 60.0 (>49); GLUCOSE, FASTING 140 MG/DL (70-100); MAGNESIUM LEVEL 1.8 MG/DL (1.8-2.4); POTASSIUM SERUM 4.8 MEQ/L (3.5-5.1); SODIUM LEVEL 130 MEQ/L (136-145); TOTAL PROTEIN 6.8 GM/DL (6.4-8.2)
[2021-07-22] MEDS: MONTELUKAST 10 MG TAB PO SCH (09:33)
[2021-07-22] MEDS: rifAXIMin 550 MG TAB (XIFAXAN) PO SCH ×2 (09:33→20:57)
[2021-07-22] MEDS: DIGOXIN 0.25 MG TAB PO SCH (09:34)
[2021-07-22] MEDS: POTASSIUM CHLORIDE 10MEQ SR TABLET PO SCH (09:34)
[2021-07-22] MEDS: OMEPRAZOLE 20MG CAP PO SCH (09:35)
[2021-07-22] MEDS: SERTRALINE HCL 50 MG TAB PO SCH (09:35)
[2021-07-22] MEDS: predniSONE 10 MG TAB PO SCH (09:35)
[2021-07-22] MEDS: SPIRONOLACTONE 25 MG TAB PO SCH (09:36)
[2021-07-22] MEDS: FUROSEMIDE 20 MG TAB PO SCH (09:36)
[2021-07-22] MEDS: BACTRIM 160MG/800MG DS TAB PO SCH (09:36)
[2021-07-22 14:09] LABS: BASO # 0.1 10^3/uL (0.0-0.2); BASO % 0.4 % (0.0-1.0); EOS # 0.1 10^3/uL (0.0-0.5); EOS % 0.3 % (0.0-3.0); HEMATOCRIT 34.6 % (42.0-52.0); HEMOGLOBIN 11.8 g/dl (13.5-17.5); LYMPH # 1.1 10^3/uL (1.5-5.0); LYMPH % 5.7 % (24.0-44.0); MEAN CORPUSCULAR HEMOGLOBIN 35.3 pg (27.0-33.0); MEAN CORPUSCULAR HGB CONC 34.1 g/dl (32.0-36.5); MEAN CORPUSCULAR VOLUME 103.6 fl (80.0-96.0); MONO % 10.7 % (2.0-8.0); NEUTROPHILS # 15.2 10^3/uL (1.5-8.5); NEUTROPHILS % 81.5 % (36.0-66.0); RED BLOOD COUNT 3.34 10^6/uL (4.30-6.10); WHITE BLOOD COUNT 18.6 10^3/uL (4.0-10.0)
[2021-07-22 14:10] LABS: PLATELET COUNT, AUTOMATED 95 10^3/uL (150-450)
[2021-07-22] MEDS: PIPERACILLIN/TAZOBACTAM SOD 3.375 GM in D5W MINI-BAG PLUS 50 ML IV SCH ×2 (14:21→20:56)
[2021-07-22] MEDS ORDERED: NS 1,000 ML IV SCH (14:40)
[2021-07-22] MEDS: WARFARIN SOD 3MG TAB PO SCH (17:55)
[2021-07-22] MEDS: NORTRIPTYLINE 25 MG CAP PO SCH (20:57)
[2021-07-22] MEDS: FLECAINIDE 50MG TABLET PO SCH (20:58)
[2021-07-23] MEDS: PIPERACILLIN/TAZOBACTAM SOD 3.375 GM in D5W MINI-BAG PLUS 50 ML IV SCH ×2 (02:41→10:00)
[2021-07-23 04:00] VITALS: BP 136/86
[2021-07-23 06:15] VITALS: BP 136/86
[2021-07-23] MEDS: LACTULOSE 20 GM/30 ML SYRUP UD PO SCH ×2 (06:15→12:00)
[2021-07-23] MEDS: MIDODRINE 5 MG TAB PO SCH (08:00)
[2021-07-23 08:22] VITALS: BP 123/66
[2021-07-23] MEDS ORDERED: FLUCONAZOLE 200 MG in IV 1 EA IV SCH (08:50)
[2021-07-23] MEDS: MONTELUKAST 10 MG TAB PO SCH (10:06)
[2021-07-23] MEDS: POTASSIUM CHLORIDE 10MEQ SR TABLET PO SCH (10:06)
[2021-07-23] MEDS: SERTRALINE HCL 50 MG TAB PO SCH (10:06)
[2021-07-23] MEDS: rifAXIMin 550 MG TAB (XIFAXAN) PO SCH (10:06)
[2021-07-23] MEDS: SPIRONOLACTONE 25 MG TAB PO SCH (10:07)
[2021-07-23] MEDS: predniSONE 10 MG TAB PO SCH (10:07)
[2021-07-23] MEDS: OMEPRAZOLE 20MG CAP PO SCH (10:07)
[2021-07-23] MEDS: FUROSEMIDE 20 MG TAB PO SCH (10:08)
[2021-07-23] MEDS: DIGOXIN 0.25 MG TAB PO SCH (10:09)
[2021-07-23 10:31] LABS: HEMATOCRIT 33.1 % (42.0-52.0); HEMOGLOBIN 11.5 g/dl (13.5-17.5); MEAN CORPUSCULAR HEMOGLOBIN 35.2 pg (27.0-33.0); MEAN CORPUSCULAR HGB CONC 34.7 g/dl (32.0-36.5); MEAN CORPUSCULAR VOLUME 101.2 fl (80.0-96.0); PLATELET COUNT, AUTOMATED 100 10^3/uL (150-450); RED BLOOD COUNT 3.27 10^6/uL (4.30-6.10); WHITE BLOOD COUNT 25.7 10^3/uL (4.0-10.0)
[2021-07-23 10:47] LABS: INR 2.98; PROTHROMBIN TIME 31.3 SECONDS (12.7-14.5)
[2021-07-23] MEDS ORDERED: VANCOMYCIN HCL 1,000 MG, VIAL MATE ADAPTER 1 EACH in NS 250 ML IV ONE (11:00)
[2021-07-23 11:03] LABS: CK-MB VALUE MASS 3.8 NG/ML (<3.6); MB/CK RELATIVE INDEX 4.87 (< OR =4)
[2021-07-23 11:17] LABS: ALBUMIN 2.8 GM/DL (3.2-5.2); BILIRUBIN,TOTAL 15.8 MG/DL (0.2-1.0); CREATININE FOR GFR 1.79 MG/DL (0.70-1.30); GLOMERULAR FILTRATION RATE 41.4 (>49); MAGNESIUM LEVEL 1.9 MG/DL (1.8-2.4); POTASSIUM SERUM 5.3 MEQ/L (3.5-5.1); TOTAL PROTEIN 6.7 GM/DL (6.4-8.2)
[2021-07-23] MEDS: FLECAINIDE 50MG TABLET PO SCH (11:17)
[2021-07-23] MEDS ORDERED: BISACODYL 10 MG SUPP PR PRN (11:45)
[2021-07-23] MEDS ORDERED: ONDANSETRON 4MG/2ML VIAL IV PRN (11:45)
[2021-07-23] MEDS ORDERED: LORazepam 1 MG TAB PO PRN (11:45)
[2021-07-23] MEDS ORDERED: FLEET ENEMA PR PRN (11:45)
[2021-07-23] MEDS ORDERED: ATROPINE SULFATE 1% OP SOLN 2 ML BTL SL PRN (11:45)
[2021-07-23] MEDS ORDERED: MORPHINE 2 MG/ML 1ML VIAL IV PRN (11:45)
[2021-07-23] MEDS ORDERED: LORazepam 2 MG/ML VIAL IV PRN (11:45)
[2021-07-23] MEDS ORDERED: ONDANSETRON 4MG ORAL DISINTEGRATING TAB PO PRN (11:45)
[2021-07-23] MEDS ORDERED: HYOSCYAMINE SULFATE 0.125 MG SUBL TABLET PO PRN (11:45)
[2021-07-23] MEDS ORDERED: MORPHINE 10MG/0.5ML ORAL CONCENTRATE SOLUTION U/D SL PRN (11:45)
[2021-07-23] MEDS ORDERED: SCOPOLAMINE 1MG TRANSDERMAL PATCH TOP PRN (11:45)
[2021-07-23] MEDS ORDERED: VANCOMYCIN HCL 750 MG, VIAL MATE ADAPTER 1 EACH in NS 250 ML IV ONE (12:00)
[2021-07-24] MEDS ORDERED: VANCOMYCIN HCL 1,000 MG, VIAL MATE ADAPTER 1 EACH in NS 250 ML IV SCH (11:00)
== END 2021-07-23 18:17 | disposition expired | DRG 432 ==
LOC: EDBD 14:28 → M ED 14:28 → M ED INP 20:04 → ENRESERV 20:48 → M PCU 21:30 → M ICU 07-14 08:02 → M PCU 07-16 18:24
PROVIDERS: ADMIT Internal Medicine; ATTEND Internal Medicine
PROC: 0W9D3ZZ Drainage of Pericardial Cavity, Percutaneous Approach (ICD-10-PCS; principal; 2021-07-19 14:34)
DX: K70.31 Alcoholic cirrhosis of liver with ascites (principal); G93.41 Metabolic encephalopathy; K65.2 Spontaneous bacterial peritonitis; K76.7 Hepatorenal syndrome; K72.00 Acute and subacute hepatic failure without coma; J90 Pleural effusion, not elsewhere classified; E87.4 Mixed disorder of acid-base balance; I48.92 Unspecified atrial flutter; K76.6 Portal hypertension; I85.00 Esophageal varices without bleeding; J98.11 Atelectasis; N17.9 Acute kidney failure, unspecified; E87.1 Hypo-osmolality and hyponatremia; M48.56XA Collapsed vertebra, not elsewhere classified, lumbar region, initial encounter for fracture; E72.20 Disorder of urea cycle metabolism, unspecified; Z66 Do not resuscitate; I48.91 Unspecified atrial fibrillation; F10.10 Alcohol abuse, uncomplicated; I10 Essential (primary) hypertension; J43.9 Emphysema, unspecified; D69.6 Thrombocytopenia, unspecified; F17.210 Nicotine dependence, cigarettes, uncomplicated; R00.0 Tachycardia, unspecified; K21.9 Gastro-esophageal reflux disease without esophagitis; E78.5 Hyperlipidemia, unspecified; Z20.822 Contact with and (suspected) exposure to COVID-19; E87.5 Hyperkalemia; D64.9 Anemia, unspecified; E87.70 Fluid overload, unspecified